=== PATIENT | female | born 1955 | race Caucasian/White ===

== ENCOUNTER 2017-04-05 16:34 | Inpatient (IN) | payer BC ==
[~2017-04-05] VITALS: Ht 167.6 cm; Wt 60.4 kg
[2017-04-05 18:22] LABS: BASO % 0.6 % (0.0-1.0); EOS # 0.2 K/mm3 (0.0-0.50); EOS % 2.3 % (0.0-3.0); LARGE UNSTAINED CELL # 0.1 K/mm3 (0.0-0.4); LARGE UNSTAINED CELL % 1.6 % (0.0-4.0); LYMPH # 2.4 K/mm3 (1.5-4.5); LYMPH % 32.3 % (24.0-44.0); MEAN CORPUSCULAR HEMOGLOBIN 37.6 pg (27.0-33.0); MEAN CORPUSCULAR HGB CONC 34.1 g/dl (32.0-36.5); MEAN CORPUSCULAR VOLUME 110.3 fl (80.0-96.0); MONO # 0.3 K/mm3 (0.0-0.8); MONO % 3.9 % (0.0-5.0); NEUTROPHILS # 4.2 K/mm3 (1.8-7.7); NEUTROPHILS % 59.2 % (36.0-66.0); PLATELET COUNT, AUTOMATED 210 k/mm3 (150-450); RED CELL DISTRIBUTION WIDTH 14.6 % (11.5-14.5); WHITE BLOOD COUNT 7.1 K/mm3 (4.0-10.0)
--- NOTE | 2017-04-05 18:30 | REPUSA ---
CT of the head Clinical history: Headache. Comparison: 09/03/2010. Technique: Multiple axial CT images were obtained through the head without administration of contrast . Findings: The ventricles and sulci are symmetric bilaterally. The arachnoid cyst in the right cerebel lum is stable. There is no evidence of acute hemorrhage or infarct. There is no midline shift, mass e ffect, or extra-axial fluid collection. The osseous structures are unremarkable. The visualized paran erika sinuses and mastoid air cells are clear. Impression: Negative study.
[2017-04-05 18:40] LABS: ANION GAP 7 MEQ/L (8-16); BLOOD UREA NITROGEN 15 MG/DL (7-18); CALCIUM LEVEL 8.9 MG/DL (8.8-10.2); CARBON DIOXIDE LEVEL 30 MEQ/L (21-32); CHLORIDE LEVEL 102 MEQ/L (98-107); CREATININE FOR GFR 0.91 MG/DL (0.55-1.02); GLOMERULAR FILTRATION RATE > 60.0 (>45); GLUCOSE, FASTING 91 MG/DL (80-110); POTASSIUM SERUM 3.7 MEQ/L (3.5-5.1); SODIUM LEVEL 139 MEQ/L (136-145)
--- NOTE | 2017-04-05 19:16 | REP ---
SINGLE VIEW CHEST: There is no evidence of acute infiltrate. No pleural effusion is seen. The heart is normal in size. The mediastinal silhouette is unremarkable. The visualized osseous structures are intact. IMPRESSION: No acute pulmonary disease. Signed by Mason Shultz MD 04/05/2017 08:20 P
[2017-04-05 19:17] LABS: INR 0.88
--- NOTE | 2017-04-05 20:10 | REPUSA ---
MRA of the brain. Clinical history: headache. Technique: [id number] MRA images of the brain were obtained without administration of contrast. 3 -D MIP images were also obtained. Findings: The vascular structures extending from the distal carotid and vertebrobasilar arterial syst ems, through the [place], demonstrate normal caliber and contour. There is no evidence of an eurysm, stenosis, or thrombosis. Impression: Unremarkable MRA examination of the brain.
--- NOTE | 2017-04-05 20:10 | REPUSA ---
MRI of the brain. Clinical history: headache. Comparison: 04/05/2017. Technique: Multiecho multiplanar MRI images of the brain were obtained without administration of cont rast. Diffusion weighted images with ADC mapping was also obtained. Findings: The ventricles and sulci are symmetric bilaterally. The brain parenchyma demonstrates mild areas of T 2 hyperintensity in the subcortical white matter bilaterally as well as the periventricular regions. There is a small linear area of restricted diffusion in the left basal ganglia, which does not demons trate any corresponding edema or mass effect on other images. There is no midline shift, mass effect, or extra-axial fluid collection. The midline intracranial structures do not demonstrate any gross ab normalities. The cervical cranial junction is intact. The orbits are unremarkable. The visualized par anasal sinuses and mastoid air cells are clear. The osseous structures and superficial soft tissues a re unremarkable. The vascular structures demonstrate appropriate flow voids. Impression: 1. Small linear area restricted diffusion in the left basal ganglia, which could represent a tiny acu te infarct. No corresponding imaging abnormality demonstrated on the CT or other MRI images. No evide nce of edema or mass effect. Follow-up is recommended as clinically indicated. 2. Other scattered areas of T2 hyperintensity is seen in the periventricular and subcortical white ma tter. Although this likely represents mild chronic small vessel ischemic disease, in a patient of thi s age a demyelinating process cannot completely be excluded. Clinical correlation is recommended. A call has been placed to the facility by our notch machine operator.
[2017-04-05] MEDS ORDERED: ONDANSETRON 4MG/2ML VIAL (J2405) IV PRN (20:30)
[2017-04-05] MEDS ORDERED: ACETAMINOPHEN TAB 650MG DOSE (2X325MG) PO PRN (20:30)
[2017-04-05] MEDS ORDERED: ASPIRIN 81 MG ENTERIC TAB PO ONE (21:00)
[2017-04-05] MEDS ORDERED: LABETALOL HCL 100 MG/20 ML VIAL IV ONE (21:30)
[2017-04-05 21:46] LABS: ANISOCYTOSIS 1+
[2017-04-05] MEDS ORDERED: ASPIRIN 325 MG TAB PO ONE (22:00)
--- NOTE | 2017-04-05 22:00 | REPUSA ---
Clinicaly History: Atherosclerosis. Findings: Real-Time carotid duplex ultrasound with color Doppler flow was performed. Normal color Dop pler flow and arterial waveforms are noted. Mild atherosclerotic plaque is seen in the region of the carotid bulbs bilaterally. No elevated velocities are seen however. Antegrade blood flow is seen in t he vertebral arteries bilaterally. There is no evidence of subclavian steal. The right ICA/CCA ratio measures 0.55, and the left measures 1.35. Impression: No evidence of hemodynamically significant stenosis in the carotid arterial system bilate rally. Mild atherosclerotic plaque is seen in the region of the carotid bulbs bilaterally.
[2017-04-05 22:26] LABS: ERYTHROCYTE SEDIMENTATION RATE 7 mm/hr (0-30)
--- NOTE | 2017-04-05 22:30 | HPE ---
DATE OF ADMISSION: 04/05/2017 PRIMARY CARE PHYSICIAN: Bonnie Cazares. CHIEF COMPLAINT: extremity weakness, as well as vertigo and blurry vision. HISTORY OF PRESENT ILLNESS: Ms. Stewart is a 62-year-old female with no past medical history who presented to the emergency room (ER) due to experiencing vertigo, lower extremity weakness and heaviness, as well as one episode of fall. The patient expressed that the symptoms started around 11:30 a.m. when she was walking toward her office when she felt that she cannot control her lower extremity and her lower extremity felt heavy. She fell and she injured her right knee. She said at that time she crawled herself to the bench. She sat down on the bench and called her cap and hat production supervisor. Her cap and hat production supervisor came and talked to her. She said at that time, she stood up and she walked toward the break room. In the break room. She sat down for a few minutes and then she stood up and she felt vertigo and lower extremity heaviness. She also felt that her vision became more blurry. She went home and after she got home she took a nap. When she woke up, she continued to feel lower extremity heaviness and weakness. She crawled herself to the phone and she called the emergency medical investigator (EMT). The patient denies losing consciousness or feeling chest pain, palpitations, racing or skipping heart beat before the episode. However, she said after the episode, she felt mild tachycardia. The patient continued to have vertigo and blurry vision. The patient denies losing control of her bowel or bladder. The patient also denies seizure type activities or syncope. ALLERGIES: No known allergies. HOME MEDICATIONS: None. PAST MEDICAL HISTORY: 1. Basal cell carcinoma of the skin that was removed. 2. Micro colitis. PAST SURGICAL HISTORY: Colonoscopy two times, and removal of the basal cell cancer of the skin on her nose. REVIEW OF SYSTEMS: GENERAL: The patient denies fever, chills, night sweats, weight loss, weight gain. HEENT: The patient expressed that she has been having vertigo and lightheadedness, and blurry vision since this morning. However, the patient denies problem with chewing food or sinusitis. NECK: The patient denies lumps, bumps or decreased range of motion of the neck. HEART: The patient denies palpitations, racing or skipping heart beat or chest pain. LUNGS: The patient denies shortness of breath, coughing. ABDOMEN: The patient denies abdominal pain, nausea, vomiting, diarrhea, constipation, melena, hematochezia or hemoptysis. NEUROLOGIC: The patient denies history of transient ischemic attack (TIA), cerebrovascular accident (CVA) or seizure type activity. PHYSICAL EXAMINATION: VITAL SIGNS: Temperature 98.1, pulse 76, respiratory rate 16, blood pressure 186/87, pulse oximetry 98 on room air. GENERAL APPEARANCE: The patient was lying in bed in no acute distress. The patient was awake, alert, and oriented to time, place, and person. HEENT: Normocephalic, atraumatic. Pupils are equal and reactive to light. Oral mucosa is moist. NECK: Soft, supple. No lymphadenopathy or thyromegaly. No jugular venous distention (JVD). HEART: Regular rate and rhythm, normal S1, S2. ABDOMEN: Soft, nontender. Positive bowel sounds in all quadrants. LUNGS: The patient has clear breath sounds bilaterally. Good air movement. EXTREMITIES: No lower extremity edema. The patient has normal range of motion in both upper and lower extremities. Babinski sign was negative bilaterally. The patient has normal ankle and popliteal reflexes, +2 pulses in both lower extremities. The patient has normal sensation in both upper and lower extremities, as well as normal strength 5/5 both upper and lower extremities. NEUROLOGIC: The patient has mild disorder [id number] finding. Cranial nerves II through XII were intact. LABORATORY DATA: Sodium 139. Potassium 3.7, chloride 102, carbon dioxide 30, anion gap seven, BUN 15, creatinine 0.91, glomerular filtration rate more than 60, fasting glucose 91 , calcium 8.9. Total creatinine 87, CK-MB 1.2, CK-MB relative index 1.37, troponin I 0.05. C-reactive protein is pending. White blood cells 7.1, red blood cells 3.33, hemoglobin 12.5, hematocrit 36.7, MCV 110.3, MCH 37.6, MCHC 34.1, RDW 14.6, platelet count 210. Neutrophil percentage 59.2, lymphocyte percentage 32, monocytes percentage 3.9, eosinophils percentage 2.3, basophils percentage 0.6, leukocyte percentage 1.6. PT 12, INR 0.88, APTT 30.1. IMAGING: CT of the head was negative. Chest x-ray shows no acute pulmonary disease. MRI of the brain without contrast shows a small linear area restricted defusion in the left basal ganglia which could represent a tiny acute infarct. No corresponding imaging abnormality demonstrated on the CT or other MRI imaging. No edema of edema or mass effect. Other scattered areas of the T2 hyperintensity is seen in the preventricular and the subcortical white matter, although this likely represents mild chronic small-vessel ischemic disease. In a patient of this age, demyelinated process cannot complete be excluded. MRA of the brain without contrast was unremarkable. ASSESSMENT AND PLAN: 1. Extremity weakness as well as vertigo and blurry vision. This is possibly secondary to stroke. We have spoken with Dr. Campbell. Appreciate Dr. Campbell's recommendation. At this time, we gave one dose of aspirin 325. Also we start the patient on aspirin 81 mg and Lipitor 40 mg. We have admitted the patient to the progressive care unit (PCU) with neurologic checks every four hours. Also, due to patient having hypertension, based on recommendation from Dr. Campbell, we will monitor the blood pressure for range of 140-180. Also he recommended revaluation of imaging interpretation. Due to the elevated blood pressure, we have administered one dose of labetalol 10 mg intravenous (IV) and lisinopril 5 mg by mouth twice a day. Also, we have checked an electrocardiogram (EKG) which indicated possible incomplete right bundle branch block. Cardiac marker was negative. We will repeat the cardiac marker again. Also, due to the possibility of hypercoagulable state, I have ordered lab work and the result is pending. Also, we have ordered thyroid panel and the result is pending at this time. Also we have ordered echocardiogram and carotid ultrasound, and the result is pending. 2. Hypertension. At this time, the patient received one dose of labetalol 10 mg IV once, and will continue with lisinopril 5 mg by mouth twice a day. However, we put the primary care and we want the blood pressure to be between 140 to 180. 3. Deep venous thrombosis (DVT) prophylaxis. The patient is on heparin. My preceptor for this patient encounter was Dr. Lin Vu. The preceptor was physically present in the building during the encounter and was fully available as needed. All aspects of the patient interview, examination, medical decision making process, and medical care plan development were reviewed and approved by the preceptor. The preceptor is aware and concurs with the plan as stated in the body of this note and will attest to such by his/her co-signature. I have both independently examined this patient as well as reviewed the H&P. I have discussed in detail with the resident the findings and plan of treatment as documented in the residents note. I will continue to follow the patient and offer further guidance to the patients care as necessary during this hospital stay. Lin VERONICA
[2017-04-05] MEDS: ATORVASTATIN 20 MG TAB PO SCH (22:43)
[2017-04-05] MEDS: HEPARIN SOD (PORCINE) 5000 UNITS/ML VIAL SQ SCH (22:44)
[2017-04-05] MEDS: LISINOPRIL 5 MG TAB PO SCH (22:44)
[2017-04-05 23:42] VITALS: BP 177/81
[2017-04-06] VITALS (8 sets, daily range): BP systolic 138–174; BP diastolic 62–82
[2017-04-06 00:28] LABS: T UPTAKE 37 % (30-39); THYROXINE (T4) 8.3 UG/DL (4.5-12.0)
[2017-04-06 05:55] LABS: BASO % 0.6 % (0.0-1.0); EOS # 0.2 K/mm3 (0.0-0.50); EOS % 3.4 % (0.0-3.0); LARGE UNSTAINED CELL # 0.1 K/mm3 (0.0-0.4); LARGE UNSTAINED CELL % 1.4 % (0.0-4.0); LYMPH # 2.5 K/mm3 (1.5-4.5); LYMPH % 39.7 % (24.0-44.0); MEAN CORPUSCULAR HEMOGLOBIN 38.5 pg (27.0-33.0); MONO # 0.2 K/mm3 (0.0-0.8); MONO % 3.1 % (0.0-5.0); NEUTROPHILS # 3.2 K/mm3 (1.8-7.7); NEUTROPHILS % 51.8 % (36.0-66.0); PLATELET COUNT, AUTOMATED 192 k/mm3 (150-450); RED CELL DISTRIBUTION WIDTH 14.4 % (11.5-14.5); WHITE BLOOD COUNT 6.1 K/mm3 (4.0-10.0)
[2017-04-06 05:59] LABS: ADD MORPHOLOGY? YES
[2017-04-06 06:04] LABS: ALBUMIN 3.2 GM/DL (3.2-5.2); ALBUMIN/GLOBULIN RATIO 1.39 (1.00-1.93); ALKALINE PHOSPHATASE 77 U/L (45-117); ALT/SGPT 16 U/L (12-78); ANION GAP 5 MEQ/L (8-16); AST/SGOT 13 U/L (15-37); BILIRUBIN,TOTAL 0.6 MG/DL (0.2-1.0); BLOOD UREA NITROGEN 12 MG/DL (7-18); CALCIUM LEVEL 8.4 MG/DL (8.8-10.2); CARBON DIOXIDE LEVEL 28 MEQ/L (21-32); CHLORIDE LEVEL 102 MEQ/L (98-107); CREATININE FOR GFR 0.71 MG/DL (0.55-1.02); GLOMERULAR FILTRATION RATE > 60.0 (>45); GLUCOSE, FASTING 98 MG/DL (80-110); MAGNESIUM LEVEL 1.9 MG/DL (1.8-2.4); POTASSIUM SERUM 3.3 MEQ/L (3.5-5.1); SODIUM LEVEL 135 MEQ/L (136-145); T UPTAKE 39 % (30-39); THYROXINE (T4) 7.3 UG/DL (4.5-12.0); TOTAL PROTEIN 5.5 GM/DL (6.4-8.2)
[2017-04-06] MEDS: POTASSIUM CHLORIDE 10 MEQ SR TABLET PO SCH ×2 (06:36→08:34)
[2017-04-06] MEDS ORDERED: POTASSIUM CHLORIDE 10 MEQ SR TABLET PO ONE (07:00)
[2017-04-06] MEDS: ASPIRIN 81 MG ENTERIC TAB PO SCH (08:34)
[2017-04-06] MEDS: HEPARIN SOD (PORCINE) 5000 UNITS/ML VIAL SQ SCH ×2 (08:35→21:38)
[2017-04-06] MEDS: LISINOPRIL 5 MG TAB PO SCH ×2 (08:57→21:30)
[2017-04-06 12:13] LABS: CHOLESTEROL LEVEL 144 MG/DL (<200); TRIGLYCERIDES LEVEL 103 MG/DL (<150)
--- NOTE | 2017-04-06 18:26 | IPN ---
DATE: 04/06/2017 SUBJECTIVE: The patient is seen and examined in the room today. The patient still complaining about the extremity weakness. The patient still complains about frequent fall. Now the patient states her gait has become very unsteady. No overnight events reported. OBJECTIVE: VITAL SIGNS: The temperature is 99.1, pulse is 67, respirations 18, blood pressure 167/79. Pulse oximetry is 99% on room air. GENERAL: Agitated, no acute distress. Alert and oriented times three. HEENT: Normocephalic, atraumatic. Extraocular motor grossly intact. CARDIOVASCULAR: Positive S1, S2. Regular rate. LUNGS: Clear to auscultation bilaterally. ABDOMEN: Soft, nontender, nondistended. Bowel sounds present. EXTREMITIES: No edema. No sign of cyanosis. NEUROLOGIC: Sensation to fine touch grossly intact. Muscle strength intact. LABORATORY DATA: WBC 6.1, hemoglobin 11.6, hematocrit 33, platelet count 192. Sodium is 135, potassium 3.3, chloride 102, carbon dioxide 28, BUN 12, creatinine 0.71, GFR greater than 60, fasting glucose 98, calcium 8.4, magnesium 1.9, total bilirubin 0.6, AST 13, ALT 16, alkaline phosphatase 77. Total CK is 74. Troponin I is 0.06. Total protein 5.5, albumin 3.2, triglycerides 103, total cholesterol 144, LDL 55.4, total HDL 68. TSH is 1.61. Free T4 index is 2.8. ASSESSMENT AND PLAN: 1. Neurological deficit. The patient has lower extremity weakness with resulting frequent falls. Neurologist Dr. Campbell being consulted. However, there is a suspicion there may be a lesion on the right side of brain which was not dictated in the official report. We may need a second opinion from Dr. Louie. At this moment, we will treat is as the patient has a stroke. The patient is on aspirin 81 mg and Lipitor 40 mg. The patient is monitored on telemetry with neurologic checks. The patient is on permissive hypertension. 2. History of hypertension. Current the patient is on lisinopril with holding parameter. The patient needs to be around 140/180s. 3. Deep venous thrombosis (DVT) prophylaxis. The patient is on heparin. [facility]
--- NOTE | 2017-04-06 20:01 | ECGEPIP ---
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
[2017-04-06] MEDS: ATORVASTATIN 20 MG TAB PO SCH (21:38)
[2017-04-07 05:00] VITALS: BP 145/77
[2017-04-07 06:06] LABS: BASO % 0.7 % (0.0-1.0); EOS # 0.1 K/mm3 (0.0-0.50); EOS % 2.3 % (0.0-3.0); LARGE UNSTAINED CELL # 0.1 K/mm3 (0.0-0.4); LARGE UNSTAINED CELL % 1.7 % (0.0-4.0); LYMPH # 2.7 K/mm3 (1.5-4.5); LYMPH % 43.1 % (24.0-44.0); MEAN CORPUSCULAR VOLUME 111.8 fl (80.0-96.0); MONO # 0.2 K/mm3 (0.0-0.8); MONO % 3.9 % (0.0-5.0); NEUTROPHILS # 2.9 K/mm3 (1.8-7.7); NEUTROPHILS % 48.3 % (36.0-66.0); PLATELET COUNT, AUTOMATED 219 k/mm3 (150-450); RED CELL DISTRIBUTION WIDTH 14.6 % (11.5-14.5)
[2017-04-07 06:28] LABS: ALKALINE PHOSPHATASE 83 U/L (45-117); ALT/SGPT 20 U/L (12-78); ANION GAP 7 MEQ/L (8-16); AST/SGOT 19 U/L (15-37); BLOOD UREA NITROGEN 12 MG/DL (7-18); CALCIUM LEVEL 9.2 MG/DL (8.8-10.2); CARBON DIOXIDE LEVEL 27 MEQ/L (21-32); CHLORIDE LEVEL 104 MEQ/L (98-107); CREATININE FOR GFR 0.72 MG/DL (0.55-1.02); GLOMERULAR FILTRATION RATE > 60.0 (>45); GLUCOSE, FASTING 93 MG/DL (80-110); POTASSIUM SERUM 3.6 MEQ/L (3.5-5.1); SODIUM LEVEL 138 MEQ/L (136-145)
[2017-04-07 06:29] LABS: ALBUMIN 3.6 GM/DL (3.2-5.2); ALBUMIN/GLOBULIN RATIO 1.29 (1.00-1.93); BILIRUBIN,TOTAL 0.5 MG/DL (0.2-1.0); MAGNESIUM LEVEL 2.1 MG/DL (1.8-2.4); TOTAL PROTEIN 6.4 GM/DL (6.4-8.2)
[2017-04-07 08:00] VITALS: BP 141/72
[2017-04-07] MEDS: LISINOPRIL 5 MG TAB PO SCH ×2 (08:38→21:11)
[2017-04-07] MEDS: HEPARIN SOD (PORCINE) 5000 UNITS/ML VIAL SQ SCH ×2 (08:38→21:07)
[2017-04-07] MEDS: ASPIRIN 81 MG ENTERIC TAB PO SCH (08:38)
--- NOTE | 2017-04-07 10:25 | ECHO ---
DATE OF PROCEDURE: 04/06/2017 DATE OF : 1955 AGE: 62 REFERRING PROVIDER: Emergency room. PATIENT LOCATION: Emergency room. REASON FOR ECHOCARDIOGRAM: Weakness, cerebrovascular accident (CVA). 2D MEASUREMENTS: IVS: 1.1 cm LV: 4.4 cm LVPW: 1.2 cm LA: 3.0 cm Aorta: 3.8 cm Aortic root: 3.8 cm Ascending aorta: 3.9 cm RV: 2.1 cm DOPPLER MEASUREMENTS: Mitral E: 0.56 Mitral A: 0.80 Ratio 0.7 2D COMMENTS: 1. Technically limited study due to poor acoustic window. 2. The left ventricular size is normal as well as left ventricular wall thickness and systolic function. The estimated global left ventricular systolic ejection fraction is 60% to 65%. 3. Normal left atrium. Normal right atrium and right ventricle noted in limited views. 4. The atrial septum appeared to be normal without evidence of defect or shunt. 5. Mildly enlarged aortic root and ascending aorta at 3.8 cm and 3.9 cm respectively. 6. Trace pericardial effusion noted in limited views. 7. The aortic valve, mitral valve, and tricuspid valve appeared to be normal. The pulmonic valve and proximal pulmonary artery branches were not well visualized. 8. The inferior vena cava was normal in size, central venous pressure is probably normal. DOPPLER: No significant valvular abnormality detected. Abnormal relaxation pattern was noted across the mitral valve leaflets as well as the mitral valve annulus consistent with grade 1 left ventricular diastolic dysfunction. IMPRESSION: 1. Normal global left ventricular systolic function. There are features of left ventricular diastolic dysfunction manifested by abnormal relaxation. 2. Mildly dilated aortic root and ascending aorta at 3.8 cm and 3.9 cm respectively. 3. Trace pericardial effusion noted, no evidence of cardiac tamponade. 4. The study was technically limited due to poor acoustic window. [facility]
[2017-04-07] MEDS ORDERED: SLF 3 ML SYR IV PRN (10:30)
[2017-04-07 12:00] VITALS: BP 149/71
[2017-04-07] MEDS: SLF 3 ML SYR IV SCH ×2 (12:05→21:07)
--- NOTE | 2017-04-07 12:56 | CR ---
DATE OF CONSULTATION: 04/07/2017 REFERRING PROVIDER: Dr. Carole Mendez REASON FOR CONSULTATION: Acute stroke. HISTORY OF PRESENT ILLNESS: Vangie Stewart is a 62-year-old female with past medical history significant for history of basal cell carcinoma of her nose status post removal. The patient presented to [facility] with complaints of having weakness of the lower extremities over the last couple of days. She states that she reports clumsiness of her right side which she cannot exactly date back to. She states she has always been clumsy. She was found to have significant ataxia of the right arm and right leg. MRI of the brain reveals acute ischemic stroke of the left basal ganglia region near the left thalamus as well as a prior old right cerebellar infarct with some significant encephalomalacia. Official read for this particular lesion is pending as the MRI report did not comment on it. Second read by Dr. Esteban Louie is pending. The patient states that she saw her doctor only when she gets sick, otherwise was not going to her physician for the last several years. The patient states that she has been having blurred vision on and off, particularly when reading close up. She states this affects both eyes, she has not seen her eye doctor recently. She does not have difficulty seeing far away. She denies any chest pain or dizziness. She denies any dizziness or vertigo. She states that over the last few days she has had some lightheadedness. She has been hypertensive while in the hospital. The patient states that she has been having difficulty ambulating , which is likely resulting from right-sided hemiparesis from her most recent stroke and also from her ataxia likely from a prior stroke. Her strokes are lacunar in nature, likely secondary to uncontrolled hypertension. The patient does smoke. She does not take an aspirin every day. She was started on 81 mg aspirin after receiving 325 mg aspirin at the emergency room (ER). The patient states that her cholesterol levels were good; however, she is agreeable to go ahead and continue statin therapy for the sake of controlling plaque within her arterial rose. REVIEW OF SYSTEMS: 14-point review of systems obtained and is negative except as per history of present illness (HPI). ALLERGIES: None. HOME MEDICATIONS: None. SOCIAL HISTORY: The patient smokes one-pack of tobacco per day and has one to two glasses of wine per day. Denies any recreational drug use. FAMILY HISTORY: Mother had hypertension. No family history of stroke or heart disease. MEDICAL HISTORY: Basal carcinoma of the nose status post resection. PAST SURGICAL HISTORY: Resection of basal cell carcinoma of the nose. PHYSICAL EXAMINATION: Blood pressure 156/68, pulse rate is 70, respiratory rate is 18, temperature is 98.4 degrees Fahrenheit and oxygenation 94% on room air. The patient is awake, alert, oriented to person, place and time. Speech, language and comprehension are intact without any aphasia or dysarthria. Pupils are 3 mm round and reactive to light. Extraocular movements are intact in all directions without any nystagmus. Sensation V1, V2 and V3 is intact to light touch bilaterally. No facial asymmetry on activation. Palate elevates symmetrically. Tongue is midline. No weakness of sternocleidomastoids bilaterally. Hearing is subjectively equal to finger rub. There is very subtle pronator drift of the right upper extremity. Strength testing reveals mild weakness of the right triceps and iliopsoas and 5- weakness of the right biceps. All other muscles tested are within normal limits. Deep tendon reflexes are 2s throughout. Babinski signs are absent. Sensory is intact to light touch, temperature and vibration throughout. Coordination reveals gross ataxia of the right upper and lower extremity on [id number] and [id number] testing. ASSESSMENT: Acute ischemic stroke of the left basal ganglia region in proximity of the thalamus along with old chronic right cerebellar lacunar infarction with encephalomalacia. Other etiologies for this lesion will need to be reviewed by radiology. Second opinion read of the MRI brain is pending. PLAN: 1. Systolic blood pressure 140-180 times 48-72 hours then normalize it. Continue aspirin 81 mg by mouth daily and Lipitor 40 mg by mouth daily. 2. Check fasting lipid profile. 3. Second opinion MRI read to be performed. 4. Continue telemetry monitoring. Obtain echocardiogram. 5. Physical therapy (PT), occupational therapy (OT). 6. Patient advised smoking cessation. 7. Patient can followup with the [facility] Neurology office upon discharge. [facility]
[2017-04-07 16:00] VITALS: BP 120/58
[2017-04-07 20:11] VITALS: BP 134/63
[2017-04-07] MEDS: ATORVASTATIN 20 MG TAB PO SCH (21:06)
--- NOTE | 2017-04-07 21:37 | IPN ---
DATE: 04/07/2017 SUBJECTIVE: The patient is seen and examined in the room today. The patient feels she is more calm. Yesterday the patient was frustrated with the situation and the patient has been angry easily yesterday, but now she feels much better. The patient is still complaining about the right arm and right lower leg weakness. No overnight events reported. OBJECTIVE: VITAL SIGNS: Temperature 98.3, pulse is 62, respirations 18, blood pressure 141/72, pulse oximetry is 99% on room air. GENERAL: No sign of acute distress. Alert and oriented times three. HEENT: Normocephalic, atraumatic. Extraocular motor grossly intact. CARDIOVASCULAR: Positive S1, S2, regular rate. LUNGS: Clear to auscultation bilaterally. ABDOMEN: Soft, nontender, nondistended. Bowel sounds present. No rebound, no guarding. EXTREMITIES: No edema, no sign of cyanosis. LABORATORY DATA: WBC 6, hemoglobin 12.8, hematocrit 37.6, platelet count is 219. Sodium is 138, potassium 3.6, chloride 104, carbon dioxide 27, BUN 12, creatinine 0.72, GFR greater than 60, fasting glucose is 93, calcium 9.2, magnesium 2.1. Total bilirubin 0.5, AST 19, ALT 20, alkaline phosphatase 83. Total protein 6.4, albumin 3.6. ASSESSMENT AND PLAN: 1. Right-sided weakness. There is a suspicion for stroke. Dr. Campbell has been consulted, who recommends second opinion for patient's previous brain MRI. At this moment, the patient started on aspirin 81 mg and Lipitor 40 mg. The patient is continued to be monitored on telemetry with neurologic checks. We will allow permissive hypertension. 2. History of hypertension. Currently the patient's blood pressure medication is on hold in order to reach a goal of high blood pressure (systolic blood pressure (SBP) around 140s-180s). 3. Deep venous thrombosis (DVT) prophylaxis. The patient is on heparin.
[2017-04-08 00:17] VITALS: BP 144/66
[2017-04-08 04:14] VITALS: BP 140/70
[2017-04-08] MEDS: SLF 3 ML SYR IV SCH ×3 (04:26→21:05)
[2017-04-08 06:12] LABS: BASO % 0.4 % (0.0-1.0); EOS # 0.2 K/mm3 (0.0-0.50); EOS % 2.2 % (0.0-3.0); LARGE UNSTAINED CELL # 0.1 K/mm3 (0.0-0.4); LARGE UNSTAINED CELL % 1.3 % (0.0-4.0); LYMPH # 2.3 K/mm3 (1.5-4.5); LYMPH % 31.1 % (24.0-44.0); MEAN CORPUSCULAR HEMOGLOBIN 38.7 pg (27.0-33.0); MEAN CORPUSCULAR HGB CONC 34.5 g/dl (32.0-36.5); MEAN CORPUSCULAR VOLUME 112.1 fl (80.0-96.0); MONO # 0.3 K/mm3 (0.0-0.8); MONO % 3.7 % (0.0-5.0); NEUTROPHILS # 4.3 K/mm3 (1.8-7.7); NEUTROPHILS % 61.3 % (36.0-66.0); PLATELET COUNT, AUTOMATED 197 k/mm3 (150-450); RED CELL DISTRIBUTION WIDTH 14.8 % (11.5-14.5)
[2017-04-08 06:13] LABS: ADD MORPHOLOGY? YES
[2017-04-08 06:26] LABS: ALBUMIN 3.2 GM/DL (3.2-5.2); ALBUMIN/GLOBULIN RATIO 1.28 (1.00-1.93); ALKALINE PHOSPHATASE 70 U/L (45-117); ALT/SGPT 21 U/L (12-78); ANION GAP 6 MEQ/L (8-16); AST/SGOT 15 U/L (15-37); BILIRUBIN,TOTAL 0.4 MG/DL (0.2-1.0); BLOOD UREA NITROGEN 14 MG/DL (7-18); CALCIUM LEVEL 8.5 MG/DL (8.8-10.2); CARBON DIOXIDE LEVEL 28 MEQ/L (21-32); CHLORIDE LEVEL 106 MEQ/L (98-107); CREATININE FOR GFR 0.66 MG/DL (0.55-1.02); GLOMERULAR FILTRATION RATE > 60.0 (>45); GLUCOSE, FASTING 86 MG/DL (80-110); MAGNESIUM LEVEL 1.8 MG/DL (1.8-2.4); POTASSIUM SERUM 3.5 MEQ/L (3.5-5.1); SODIUM LEVEL 140 MEQ/L (136-145); TOTAL PROTEIN 5.7 GM/DL (6.4-8.2)
[2017-04-08 08:01] VITALS: BP 132/66
[2017-04-08] MEDS: ASPIRIN 81 MG ENTERIC TAB PO SCH (08:09)
[2017-04-08] MEDS: HEPARIN SOD (PORCINE) 5000 UNITS/ML VIAL SQ SCH ×2 (08:09→21:04)
[2017-04-08] MEDS: LISINOPRIL 5 MG TAB PO SCH ×2 (08:10→20:58)
[2017-04-08 16:00] VITALS: BP 148/70
--- NOTE | 2017-04-08 18:57 | IPN ---
DATE: 04/08/2017 SUBJECTIVE: Patient is seen and examined in the room today. Patient continues to complain about the right arm and leg weakness, however patient stated she is learning how to cope with the new deficit. No overnight events are reported. OBJECTIVE: VITAL SIGNS: Temperature is 97.6, pulse is 64, respirations 19, blood pressure 132/66, pulse oximetry is 97% in room air. GENERAL: No sign of acute distress. Alert and oriented times three. HEENT: Normocephalic, atraumatic. Extraocular motors grossly intact. CARDIOVASCULAR: Positive S1, S2, regular rate. LUNGS: Clear to auscultation bilaterally. ABDOMEN: Soft, nontender, nondistended. Bowel sounds present. No rebound, no guarding. EXTREMITIES: No edema, no sign of cyanosis. LABORATORY DATA: WBC 7, hemoglobin 11.8, hematocrit 34.2, platelet count is 197. Sodium is 140, potassium 3.5, chloride 106, carbon dioxide 28, BUN 14, creatinine 0.66, GFR is greater than 60, fasting glucose is 86, calcium 8.5, magnesium 1.8, total bilirubin 0.4, AST 15, ALT 21, alkaline phosphatase 70, total protein 5.7, albumin 3.2. ASSESSMENT AND PLAN: 1. Right-sided weakness. There is a question with regard to the MRI performed on 04/05/2017. Patient's signs and clinical picture presented with acute infarction. Neurologist has been consulted. I went to review the MRI of the brain again with neurologist and there was found to have a new small focal acute infarction at the lateral margin of the left thalamus. Patient was started on aspirin 81 mg and Lipitor. Patient has been monitored on telemetry for 3 days and no significant abnormality was detected and patient also continued on neurologic checks. Patient has been on the blood pressure with holding parameters for permissive hypertension. Unfortunately, this morning her blood pressure was given when patient's blood pressure is not in the target goal. Patient had a blood pressure lower than the range recommended for permissive hypertension. 2. Left thalamus acute infarction. Management as listed above. Patient continues to follow with physical therapy. Patient will be moved to medical/surgical floor. Per patient, patient usually lives by herself. Since patient started having right-sided mobility deficit, it may create some difficulty for her to maintain activities of daily living. Patient will continue working with physical therapy and patient may qualify for rehabilitation. However, placement may be an issue at the time of discharge. 3. History of hypertension. Previously, patient is on blood pressure medication with holding parameters for permissive hypertension for patient's acute stroke. Patient is currently on lisinopril. 4. Deep venous thrombosis (DVT) prophylaxis. The patient is on heparin.
[2017-04-08] MEDS: ATORVASTATIN 20 MG TAB PO SCH (21:04)
[2017-04-08 22:00] VITALS: BP 137/64
[2017-04-09] MEDS: SLF 3 ML SYR IV SCH ×3 (05:34→21:45)
[2017-04-09 06:00] VITALS: BP 138/65
[2017-04-09 06:12] LABS: BASO % 0.6 % (0.0-1.0); EOS # 0.2 K/mm3 (0.0-0.50); LARGE UNSTAINED CELL # 0.1 K/mm3 (0.0-0.4); LARGE UNSTAINED CELL % 1.4 % (0.0-4.0); LYMPH # 2.5 K/mm3 (1.5-4.5); LYMPH % 37.7 % (24.0-44.0); MEAN CORPUSCULAR HGB CONC 34.5 g/dl (32.0-36.5); MONO # 0.3 K/mm3 (0.0-0.8); MONO % 4.6 % (0.0-5.0); NEUTROPHILS # 3.4 K/mm3 (1.8-7.7); NEUTROPHILS % 52.7 % (36.0-66.0); PLATELET COUNT, AUTOMATED 215 k/mm3 (150-450); RED CELL DISTRIBUTION WIDTH 14.9 % (11.5-14.5); WHITE BLOOD COUNT 6.5 K/mm3 (4.0-10.0)
[2017-04-09 06:16] LABS: ADD MORPHOLOGY? YES
[2017-04-09 06:46] LABS: ANISOCYTOSIS 1+
[2017-04-09 07:15] LABS: ALBUMIN 3.2 GM/DL (3.2-5.2); ALBUMIN/GLOBULIN RATIO 1.28 (1.00-1.93); ALKALINE PHOSPHATASE 70 U/L (45-117); ALT/SGPT 24 U/L (12-78); ANION GAP 6 MEQ/L (8-16); AST/SGOT 25 U/L (15-37); BILIRUBIN,TOTAL 0.3 MG/DL (0.2-1.0); BLOOD UREA NITROGEN 10 MG/DL (7-18); CALCIUM LEVEL 8.7 MG/DL (8.8-10.2); CARBON DIOXIDE LEVEL 27 MEQ/L (21-32); CHLORIDE LEVEL 103 MEQ/L (98-107); CREATININE FOR GFR 0.64 MG/DL (0.55-1.02); GLOMERULAR FILTRATION RATE > 60.0 (>45); GLUCOSE, FASTING 89 MG/DL (80-110); POTASSIUM SERUM 3.9 MEQ/L (3.5-5.1); SODIUM LEVEL 136 MEQ/L (136-145); TOTAL PROTEIN 5.7 GM/DL (6.4-8.2)
[2017-04-09] MEDS: LISINOPRIL 5 MG TAB PO SCH ×2 (08:57→20:03)
[2017-04-09] MEDS: ASPIRIN 81 MG ENTERIC TAB PO SCH (08:57)
[2017-04-09] MEDS: HEPARIN SOD (PORCINE) 5000 UNITS/ML VIAL SQ SCH ×2 (08:58→20:07)
[2017-04-09 14:00] VITALS: BP 141/66
[2017-04-09] MEDS: ATORVASTATIN 20 MG TAB PO SCH (20:07)
[2017-04-09 20:10] VITALS: BP 151/70
[2017-04-10 06:00] VITALS: BP 140/68
[2017-04-10] MEDS: SLF 3 ML SYR IV SCH (06:00)
[2017-04-10 06:16] LABS: BASO % 0.4 % (0.0-1.0); EOS # 0.2 K/mm3 (0.0-0.50); EOS % 2.7 % (0.0-3.0); LARGE UNSTAINED CELL # 0.1 K/mm3 (0.0-0.4); LARGE UNSTAINED CELL % 1.6 % (0.0-4.0); LYMPH # 2.1 K/mm3 (1.5-4.5); LYMPH % 31.2 % (24.0-44.0); MEAN CORPUSCULAR HEMOGLOBIN 38.6 pg (27.0-33.0); MEAN CORPUSCULAR HGB CONC 34.1 g/dl (32.0-36.5); MEAN CORPUSCULAR VOLUME 113.3 fl (80.0-96.0); MONO # 0.4 K/mm3 (0.0-0.8); MONO % 5.4 % (0.0-5.0); NEUTROPHILS # 3.8 K/mm3 (1.8-7.7); NEUTROPHILS % 58.7 % (36.0-66.0); PLATELET COUNT, AUTOMATED 218 k/mm3 (150-450); RED CELL DISTRIBUTION WIDTH 14.8 % (11.5-14.5); WHITE BLOOD COUNT 6.4 K/mm3 (4.0-10.0)
[2017-04-10 06:43] LABS: ALBUMIN/GLOBULIN RATIO 1.43 (1.00-1.93); ALKALINE PHOSPHATASE 70 U/L (45-117); ALT/SGPT 38 U/L (12-78); ANION GAP 5 MEQ/L (8-16); AST/SGOT 47 U/L (15-37); BILIRUBIN,TOTAL 0.4 MG/DL (0.2-1.0); BLOOD UREA NITROGEN 13 MG/DL (7-18); CALCIUM LEVEL 8.3 MG/DL (8.8-10.2); CARBON DIOXIDE LEVEL 28 MEQ/L (21-32); CHLORIDE LEVEL 103 MEQ/L (98-107); CREATININE FOR GFR 0.54 MG/DL (0.55-1.02); GLOMERULAR FILTRATION RATE > 60.0 (>45); GLUCOSE, FASTING 86 MG/DL (80-110); MAGNESIUM LEVEL 1.8 MG/DL (1.8-2.4); POTASSIUM SERUM 3.9 MEQ/L (3.5-5.1); SODIUM LEVEL 136 MEQ/L (136-145); TOTAL PROTEIN 5.1 GM/DL (6.4-8.2)
[2017-04-10] MEDS ORDERED: ATOR1TAB21 PO ×2 (07:27→11:32)
[2017-04-10] MEDS ORDERED: ASPI81TAEC PO ×2 (07:27→11:32)
[2017-04-10] MEDS ORDERED: LISI-542 PO ×2 (07:27→11:32)
[2017-04-10 09:00] VITALS: BP 143/66
[2017-04-10] MEDS: LISINOPRIL 5 MG TAB PO SCH (09:00)
[2017-04-10] MEDS: ASPIRIN 81 MG ENTERIC TAB PO SCH (09:42)
[2017-04-10] MEDS: HEPARIN SOD (PORCINE) 5000 UNITS/ML VIAL SQ SCH (09:42)
--- NOTE | 2017-04-10 09:44 | IPN ---
DATE OF SERVICE: 04/09/2017 Patient is seen and examined at the bedside. Chart has been reviewed. This morning patient continues to complain of inability of fine-tune writing. She continues to have right-sided weakness, unable to recognize her own handwriting due to severe weakness of the fingers. No other issues. Walking with a walker. Very concerned about missing work and applying for disability. Requesting for paperwork from social work. Temperature 97.6, pulse 64, respiratory rate 18, blood pressure 144/65, 98% on room air, and generally patient is awake, alert and oriented to person, place and time. No facial asymmetry. Speaks in full sentences. Patient has no dysarthria. Speech is fluent. Face is symmetric. Tongue is midline. No jugular venous distention or thyromegaly. Lungs are clear to auscultation. No wheezing , rales or rhonchi. Heart: S1, S2, sinus rhythm. Abdomen is soft, nontender, nondistended. Extremities: No cyanosis, clubbing or pitting edema. Motor function: Patient is awake, alert, oriented times three. Deep tendon reflexes (DTRs) are intact. No dysarthria. No facial asymmetry. Patient has no dysmetria on [id number] testing. Mild weakness of right triceps and right biceps. All other muscles are 5/5 times four extremities. Laboratory data, microbiology have been reviewed. CURRENT ISSUES: 1. Acute ischemic stroke, left basal ganglia, left thalamic area with old chronic right cerebellar lacunar infarct with encephalomalacia. Patient is continued on aspirin and Lipitor. Patient's blood pressure appears to be maintained 130-140. Continue on lisinopril 5 mg twice a day. Physical therapy, social work for disability paperwork. 2. Hypertension appears to be well controlled. Continue on present medication lisinopril. DISPOSITION: Await physical therapy (PT) clearance prior to discharge home. May need home PT for subacute rehabilitation. [facility]
[2017-04-10 14:00] VITALS: BP 136/62
--- NOTE | 2017-04-11 12:04 | DSES ---
DATE OF ADMISSION: 04/05/2017 DATE OF DISCHARGE: 04/10/2017 CONSULTANTS DURING ADMISSION: Dr. Severo Campbell. Echocardiogram read by Dr. Brodie Thomson, farm consultant. PRIMARY DISCHARGE DIAGNOSES: 1. Acute ischemic cerebrovascular accident (CVA) in the left basal ganglia area and the left thalamic area with old chronic right cerebellar lacunar infarct with encephalomalacia. 2. Hypertension. 3. Right sided weakness secondary to left thalamic cerebrovascular accident (CVA). DISCHARGE MEDICATIONS: - aspirin 81 mg daily - Lipitor 40 mg at bedtime - lisinopril 5 mg twice a day HOSPITAL COURSE: This is a 62-year-old female who presented to the emergency room with complaints of lower extremity weakness and right upper extremity weakness. MRI showed acute ischemic stroke left basal ganglia near the left thalamus with prior old right cerebellar infarct with some encephalomalacia. The patient was a smoker of a pack a day. Patient was kept on aspirin 81 mg daily, Lipitor 40 mg daily. EKG showed sinus rhythm. She was kept on telemetry with permissive hypertension with systolic pressure of 140-180 for the 48-72 hours after her CVA. Echocardiogram read by Dr. Brodie Thomson shows ejection fraction of 60-65%, normal atrial septum, trace pericardial effusion, left ventricular diastolic dysfunction. Patient underwent physical therapy and occupational therapy evaluation and was cleared for discharge home on 04/10/2017. CBC and metabolic panel were unremarkable. Duplex ultrasound showed no carotid artery stenosis. Patient was discharged home in stable condition with outpatient physical therapy and neurology followup. White count 6.5, hemoglobin 11, hematocrit 33, platelet count 218, sodium 136, potassium 3.9, chloride 103, bicarb 28, BUN 13, creatinine 0.54, glucose of 86. IMAGING STUDIES: MRA of the brain unremarkable. MRI of the brain small linear left basal ganglia acute infarct. Vascular ultrasound showed no carotid artery stenosis. Chest x-ray 04/05 no acute cardiopulmonary disease. CT of the head 04/05 no evidence of cute hemorrhage or infarct. Arachnoid cyst in the right cerebellum in stable. MTDD
[2017-04-15 10:09] LABS: PROTEIN C ANTIGEN 95 % (60-150); PROTEIN S ANTIGEN FREE 176 % (57-157); PROTEIN S ANTIGEN TOTAL 100 % (60-150); SJOGREN'S ANTI SS-A <0.2 AI (0.0-0.9); SJOGREN'S ANTI SS-B <0.2 AI (0.0-0.9)
== END 2017-04-10 14:35 | disposition home or self-care (01) | DRG 45 ==
LOC: EDBD 16:34 → M ED 16:34 → M ED INP 21:26 → M PCU 04-06 14:20 → M MSPAV 04-08 18:59
PROVIDERS: ADMIT Hospitalist; ATTEND General Practice
DX: I63.9 Cerebral infarction, unspecified (principal); G93.89 Other specified disorders of brain; I69.351 Hemiplegia and hemiparesis following cerebral infarction affecting right dominant side; I10 Essential (primary) hypertension; Z79.82 Long term (current) use of aspirin; Z79.899 Other long term (current) drug therapy; Z85.828 Personal history of other malignant neoplasm of skin; Z82.49 Family history of ischemic heart disease and other diseases of the circulatory system

== ENCOUNTER → 2017-05-16 | Outpatient (RCR) | payer BC, MEDICAID ==
[~2017-05-16] MED LIST: ASPI1TAB PO; ASPI81TAEC PO; ATOR1TAB21 PO; CRES20TA PO; LISI-542 PO; MECL-68 PO; VITMTA PO
== END ==
LOC: M OT 04-23 12:38 → M PT 05-01 13:00 → M OT 05-07 12:06 → M PT 09:15
PROVIDERS: ATTEND Family Medicine
DX: Z51.89 Encounter for other specified aftercare (principal); I63.9 Cerebral infarction, unspecified; M62.81 Muscle weakness (generalized)

== ENCOUNTER 2017-05-23 09:56 | Outpatient (RCR) | payer BC, MEDICAID ==
[~2017-05-23 09:56] MED LIST changes: -ASPI1TAB PO; -CRES20TA PO; -MECL-68 PO; -VITMTA PO
[2017-06-09] MEDS ORDERED: ASPI1TAB PO (00:17)
[2017-06-09] MEDS ORDERED: LISI-542 PO (00:17)
[2017-06-09] MEDS ORDERED: CRES20TA PO (00:17)
[2017-06-09] MEDS ORDERED: VITMTA PO (00:18)
[2017-06-09] MEDS ORDERED: MECL-68 PO (14:07)
== END 2017-06-15 ==
LOC: M PT 09:56
PROVIDERS: ATTEND Family Medicine
DX: Z51.89 Encounter for other specified aftercare (principal); I63.9 Cerebral infarction, unspecified

== ENCOUNTER 2017-06-08 19:22 | Observation (INO) | payer BC, MEDICAID ==
[~2017-06-08] VITALS: Ht 170.2 cm; Wt 61.0 kg
[2017-06-08] MEDS ORDERED: NS 500 ML IV ONE (20:15)
[2017-06-08] MEDS ORDERED: MECLIZINE 25 MG TABLET PO ONE (20:15)
[2017-06-08 20:22] LABS: BASO # 0.1 K/mm3 (0.0-0.2); BASO % 0.7 % (0.0-1.0); EOS # 0.2 K/mm3 (0.0-0.50); EOS % 2.2 % (0.0-3.0); LARGE UNSTAINED CELL # 0.2 K/mm3 (0.0-0.4); LARGE UNSTAINED CELL % 2.2 % (0.0-4.0); LYMPH # 3.1 K/mm3 (1.5-4.5); LYMPH % 34.6 % (24.0-44.0); MEAN CORPUSCULAR HGB CONC 34.6 g/dl (32.0-36.5); MEAN CORPUSCULAR VOLUME 104.2 fl (80.0-96.0); MONO # 0.4 K/mm3 (0.0-0.8); MONO % 4.5 % (0.0-5.0); NEUTROPHILS % 55.9 % (36.0-66.0); PLATELET COUNT, AUTOMATED 404 k/mm3 (150-450); WHITE BLOOD COUNT 8.9 K/mm3 (4.0-10.0)
[2017-06-08 20:27] LABS: INR 0.9
--- NOTE | 2017-06-08 20:30 | REPUSA ---
CT of the head Clinical history: CVA. Protocol: Multiple axial CT images obtained with 5 mm slice thickness were obtained through the head without administration of contrast. Findings: The ventricles and sulci are symmetric bilaterally. There are periventricular areas of low attenuation throughout the deep white matter. This is a small new focal low attenuation lesion in the left basal ganglia, corresponding to a chronic lacunar infarct, which was previously described on th e prior MRI of March 2017. There is no evidence of acute hemorrhage or infarct. Arachnoid cyst in the right cerebellar hemisphere is stable. There is no midline shift, mass effect, or extra-axial fluid c ollection. The osseous structures are unremarkable. The visualized paranasal sinuses and mastoid air cells are clear. Impression: No acute hemorrhage or infarct. Findings are consistent with mild stable chronic small ve ssel chronic small vessel ischemic disease. There has been interval development of a small chronic le ft basal ganglia lacunar infarct, which was seen on the prior MRI of 04/05/2017.
[2017-06-08 20:34] LABS: ANION GAP 7 MEQ/L (8-16); BLOOD UREA NITROGEN 14 MG/DL (7-18); CALCIUM LEVEL 9.1 MG/DL (8.8-10.2); CARBON DIOXIDE LEVEL 30 MEQ/L (21-32); CHLORIDE LEVEL 106 MEQ/L (98-107); CREATININE FOR GFR 0.82 MG/DL (0.55-1.02); GLOMERULAR FILTRATION RATE > 60.0 (>45); GLUCOSE, FASTING 87 MG/DL (80-110); POTASSIUM SERUM 3.8 MEQ/L (3.5-5.1); SODIUM LEVEL 143 MEQ/L (136-145)
[2017-06-08] MEDS ORDERED: ROSUVASTATIN 10 MG TAB (CRESTOR) PO SCH (21:00)
--- NOTE | 2017-06-08 22:40 | REPUSA ---
Clinical history: dizziness. Comparison: 04/05/2017. Technique: [id number] MRA images of the brain were obtained without administration of contrast. 3 -D MIP images were also obtained. Findings: The vascular structures extending from the distal carotid and vertebrobasilar arterial syst ems, through the the [place], demonstrate normal caliber and contour. There is no evidence of an eurysm, stenosis, or thrombosis. Impression: Unremarkable MRA examination of the brain. No significant change since the prior study.
--- NOTE | 2017-06-08 22:40 | REPUSA ---
MRI of the brain Clinical history: CVA. Technique: Multiecho multiplanar MRI images of the brain were obtained without administration of cont rast. Diffusion weighted images with ADC mapping was also obtained. Comparison: 04/05/2017. Findings: The ventricles and sulci are symmetric bilaterally. The brain parenchyma demonstrates scattered periv entricular and subcortical white matter T2 hyperintensity changes. This is consistent with chronic sm all vessel ischemic disease. A focal area restricted diffusion in the left basal ganglia bowel appear s to be hyperintense T2 weighted images, without restricted diffusion. This is consistent with an stephanie lving chronic lacunar infarct. T2 shine through is seen within this region on diffusion weighted imag ing. There is no midline shift, mass effect, or extra-axial fluid collection. The midline intracrania l structures do not demonstrate any gross abnormalities. The arachnoid cyst in the right cerebellar s table. The cervical cranial junction is intact. The orbits are unremarkable. The visualized paranasal sinuses and mastoid air cells are clear. The osseous structures and superficial soft tissues are unr emarkable. The vascular structures demonstrate appropriate flow voids. Impression: 1. No evidence of acute hemorrhage or infarct. No new evidence of restricted diffusion. 2. Chronic lacunar infarct in the left basal ganglia, which demonstrates normal progression since the prior MRI. 3. Otherwise stable moderate chronic small vessel ischemic changes noted.
[2017-06-09] MEDS ORDERED: ASPI1TAB PO (00:17)
[2017-06-09] MEDS ORDERED: CRES20TA PO (00:17)
[2017-06-09] MEDS ORDERED: LISI-542 PO (00:17)
[2017-06-09] MEDS ORDERED: VITMTA PO (00:18)
[2017-06-09] MEDS ORDERED: LISINOPRIL 5 MG TAB PO PRN (01:30)
[2017-06-09] MEDS ORDERED: ONDANSETRON 4MG/2ML VIAL (J2405) IV PRN (01:30)
[2017-06-09] MEDS ORDERED: ACETAMINOPHEN TAB 650MG DOSE (2X325MG) PO PRN (01:30)
[2017-06-09 01:58] VITALS: BP 161/75
[2017-06-09 02:41] VITALS: BP 135/70
[2017-06-09 04:00] VITALS: BP 117/59
[2017-06-09 05:57] LABS: BASO % 0.7 % (0.0-1.0); EOS # 0.3 K/mm3 (0.0-0.50); EOS % 3.9 % (0.0-3.0); LARGE UNSTAINED CELL # 0.1 K/mm3 (0.0-0.4); LARGE UNSTAINED CELL % 1.5 % (0.0-4.0); LYMPH % 38.2 % (24.0-44.0); MEAN CORPUSCULAR HGB CONC 34.6 g/dl (32.0-36.5); MONO # 0.4 K/mm3 (0.0-0.8); MONO % 5.3 % (0.0-5.0); NEUTROPHILS # 3.9 K/mm3 (1.8-7.7); NEUTROPHILS % 50.5 % (36.0-66.0); PLATELET COUNT, AUTOMATED 351 k/mm3 (150-450); RED CELL DISTRIBUTION WIDTH 13.1 % (11.5-14.5); WHITE BLOOD COUNT 7.8 K/mm3 (4.0-10.0)
--- NOTE | 2017-06-09 06:08 | ECGEPIP ---
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
[2017-06-09 06:33] LABS: ALBUMIN/GLOBULIN RATIO 1.11 (1.00-1.93); ALKALINE PHOSPHATASE 67 U/L (45-117); ALT/SGPT 16 U/L (12-78); ANION GAP 7 MEQ/L (8-16); AST/SGOT 13 U/L (15-37); BILIRUBIN,TOTAL 0.3 MG/DL (0.2-1.0); BLOOD UREA NITROGEN 13 MG/DL (7-18); CALCIUM LEVEL 7.9 MG/DL (8.8-10.2); CARBON DIOXIDE LEVEL 28 MEQ/L (21-32); CHLORIDE LEVEL 109 MEQ/L (98-107); CHOLESTEROL LEVEL 126 MG/DL (< 200); CREATININE FOR GFR 0.61 MG/DL (0.55-1.02); GLOMERULAR FILTRATION RATE > 60.0 (>45); GLUCOSE, FASTING 80 MG/DL (80-110); PHOSPHORUS LEVEL 3.7 MG/DL (2.5-4.9); POTASSIUM SERUM 3.5 MEQ/L (3.5-5.1); SODIUM LEVEL 144 MEQ/L (136-145); TOTAL PROTEIN 5.7 GM/DL (6.4-8.2); TRIGLYCERIDES LEVEL 85 MG/DL (<150)
[2017-06-09 08:03] VITALS: BP 111/59
[2017-06-09] MEDS ORDERED: MECLIZINE 25 MG TABLET PO SCH (09:00)
[2017-06-09] MEDS ORDERED: ASPIRIN 81 MG ENTERIC TAB PO SCH (09:00)
[2017-06-09] MEDS ORDERED: MULTIVITAMINS/MINERALS THERAP 1 TAB PO SCH (09:00)
[2017-06-09 12:00] VITALS: BP 120/62
[2017-06-09] MEDS ORDERED: MECL-68 PO (14:07)
--- NOTE | 2017-06-09 15:54 | HPE ---
DATE OF ADMISSION: 06/08/2017 PRIMARY CARE PROVIDER: Dr. Bonnie Cazares. CHIEF COMPLAINT: Vertigo. HISTORY OF PRESENT ILLNESS: This is a 62-year-old female with a history of a cerebrovascular accident (CVA) treated in March of 2017. She had left-sided weakness. She went through rehabilitation. She has been at home doing well until the last two days when she has developed overall weakness, headache, and dizziness where the room spins around to the point where she has fallen in the last two days. No blurry or double vision. She has been slightly nauseated with it. It was happening at rest, and worsened when she tried to close her eyes. She came to the emergency room. Upon arrival, blood pressure was elevated at 171/84, pulse 88, respirations 18, temperature was 98.4. Oxygen saturation was 98% on room air. Laboratory studies were done. CT scan was done. She was given intravenous (IV) normal saline. She was given meclizine 50 mg with no improvement. She was given Valium 5 mg IV once. She still has the vertigo. LABORATORY DATA: WBC was 8.9, hemoglobin 12.9, hematocrit 37.2, platelets were 404. Electrolytes were normal anion gap was seven. BUN was 14, creatinine 0.82. Troponin was 0.05. CK-MB was 1.44. CPK was 69. Fasting glucose was 87. PT was 12.2, INR was 0.90, PTT was 30.9. A CT of the brain was done which showed no acute hemorrhage or infarct. Findings consistent with mild stable chronic small vessel disease. Interval development of a small, chronic left basal ganglia infarct, which was last seen on prior MRI 04/05/2017. An MRA without contrast was done which showed vascular structures extending from the distal carotid and vertebral basilar arterial system to the [place] normal caliber and contour. No evidence of aneurysm, stenosis or thrombosis. MRI of the brain showed no evidence of acute hemorrhage or infarct. No evidence of restricted diffusion. Chronic lacunar infarct in the left basal ganglia which demonstrates normal progression since the prior MRI. Otherwise stable moderate chronic small vessel ischemic changes noted. Assessment was done. Patient was unable to even sit up without severe vertigo. She was unable to be stood secondary to overall weakness and vertigo, accompanied with nausea. The patient will be admitted for observation to the service of Dr. Noland for further workup, neurological checks, physical therapy evaluation. ALLERGIES: No known allergies. SOCIAL HISTORY: She is single. She does not drink alcohol. She does not smoke cigarettes. She does not use recreational drugs. PAST MEDICAL HISTORY: 1. Hypertension. 2. CVA 04/05/2017. 3. Hypercholesterolemia. PAST SURGICAL HISTORY: 1. Removal of basal cell skin from the nose. 2. Colonoscopy times two. CURRENT MEDICATIONS: - aspirin 81 mg by mouth daily - lisinopril 5 mg by mouth daily - Crestor 20 mg by mouth at bedtime - multivitamin one by mouth daily FAMILY HISTORY: Noncontributory. REVIEW OF SYSTEMS: Had mild headache. No blurred or double vision. Had vertigo. No fever, no chills. No tinnitus. No hoarseness or difficulty swallowing. Breasts: No masses. Cardiovascular: No complaints of chest pain, shortness of breath, palpitations or edema. Respiratory: No chronic cough, no sputum production. No hemoptysis, no orthopnea, no wheeze. Gastrointestinal: She has nausea, no vomiting or diarrhea. Hematologic: No history of anemia. Neurologic: Has had a history of CVA with resultant left-sided weakness. Is currently experiencing vertigo. Psychologic: No anxiety, depression or suicidal ideation. PHYSICAL EXAMINATION: A 62-year-old female who looks much older than her stated years. VITAL SIGNS: Blood pressure 146/66, pulse 60, respirations 19, temperature 98. GENERAL: The patient is alert and oriented times three. HEENT: Pupils equal and react to light. Extraocular movement intact. Sclerae clear. Conjunctivae normal. No facial asymmetry. Pharynx, tongue, gums pink and moist. Tongue is midline. NECK: Supple without lymphadenopathy. No thyromegaly. No goiter. Carotids 2+ without bruits. CHEST: Clear to auscultation without wheeze or retraction. HEART: Regular. ABDOMEN: Benign. Bowel sounds are positive. GENITOURINARY/RECTAL: Not done. EXTREMITIES: Show slight weakness on the less. No cyanosis, clubbing or edema. Peripheral pulses equal and palpable bilaterally. SKIN: Warm and dry. IMPRESSION AND PLAN: 1. Severe vertigo. 2. Nausea. 3. History of cerebrovascular accident. 4. History of hypertension. 5. History of hypercholesterolemia. Admit to progressive care unit (PCU). Continue neuro checks, vital signs. [facility]. Physical therapy (PT) evaluation.
--- NOTE | 2017-06-10 07:11 | REP ---
CHEST SINGLE VIEW: COMPARISON: 04/05/2017 There is no evidence of acute infiltrate. No pleural effusion is seen. The heart is normal in size. The mediastinal silhouette is unremarkable. The visualized osseous structures are intact. IMPRESSION: No acute pulmonary disease. Signed by Mason Shultz MD 06/10/2017 05:26 P
[2017-06-10] MEDS ORDERED: INFLUENZA QUADRIVALENT PF VACCINE 0.5ML SYRINGE (90686) IM ONE (09:00)
--- NOTE | 2017-06-10 15:03 | DS.PDOC ---
Discharge Summary General Date of Admission Jun 08, 2017 at 19:23 Date of Discharge 06/09/17 Discharge Summary PROCEDURES PERFORMED DURING STAY: None. ADMITTING/DISCHARGE DIAGNOSES: 1. . Vertigo COMPLICATIONS/CHIEF COMPLAINT: Vertigo. HISTORY OF PRESENT ILLNESS: . 62-year-old female with past medical history of hypertension, dyslipidemia, tobacco use, and recent admission for left basal ganglia and left thalamic CVA in March 2017, with mild residual deficits on the right side. In addition, the patient did state that she had residual dizziness associated with the event. The patient presented back to the ER on 06/09 with increased dizziness over the last 48 hours. The patient had stated that she also felt weak overall, but denied any acute focal neurological deficits such as facial numbness/tingling, or worsening of any weakness in the extremities. She denied any headaches, fevers, chills, chest pain, shortness of breath, abdominal pain, or any nausea/ vomiting/diarrhea. The patient subsequently presented to the ER for further evaluation. In the ER, a CT scan of the head revealed no acute findings. An MRI and MRA of the brain also revealed no acute findings. The patient was admitted to the hospitalist service for further management. During hospitalization, the patient was provided supportive treatment and started on meclizine 3 times a day. The patient had no other neurological events. Her dizziness subsequently improved. She was seen by physical therapy, who cleared her for discharge home. At this time, the patient states that she is feeling much better and is eager to return home. I did discuss symptoms/ signs of acute stroke with the patient, and advised her to seek treatment for any of the aforementioned symptoms if they were to occur. The patient verbalized understanding of the same. I also extensively discussed the need for the patient to quit smoking tobacco. At this time, the patient will be discharged home. I have asked the patient to follow-up with her primary care physician within 7 days for further management of her chronic comorbidities. DISCHARGE MEDICATIONS: Please see below. ALLERGIES: Please see below. PHYSICAL EXAMINATION ON DISCHARGE: VITAL SIGNS: Please see below. GENERAL: Awake, alert, oriented 4 HEENT: Normocephalic, atraumatic NECK: No JVD CARDIOVASCULAR EXAMINATION: Normal rate, normal S1, S2 RESPIRATORY EXAMINATION: Clear to auscultation bilaterally ABDOMINAL EXAMINATION: Soft, nontender, nondistended EXTREMITIES: No swelling or tenderness LABORATORY DATA: Please see below. IMAGING: MRI of the brain Clinical history: CVA. Technique: Multiecho multiplanar MRI images of the brain were obtained without administration of contrast. Diffusion weighted images with ADC mapping was also obtained. Comparison: 04/05/2017. Findings: The ventricles and sulci are symmetric bilaterally. The brain parenchyma demonstrates scattered periventricular and subcortical white matter T2 hyperintensity changes. This is consistent with chronic small vessel ischemic disease. A focal area restricted diffusion in the left basal ganglia bowel appears to be hyperintense T2 weighted images, without restricted diffusion. This is consistent with an evolving chronic lacunar infarct. T2 shine through is seen within this region on diffusion weighted imaging. There is no midline shift, mass effect, or extra-axial fluid collection. The midline intracranial structures do not demonstrate any gross abnormalities. The arachnoid cyst in the right cerebellar stable. The cervical cranial junction is intact. The orbits are unremarkable. The visualized paranasal sinuses and mastoid air cells are clear. The osseous structures and superficial soft tissues are unremarkable. The vascular structures demonstrate appropriate flow voids. Impression: 1. No evidence of acute hemorrhage or infarct. No new evidence of restricted diffusion. 2. Chronic lacunar infarct in the left basal ganglia, which demonstrates normal progression since the prior MRI. 3. Otherwise stable moderate chronic small vessel ischemic changes noted. Clinical history: dizziness. Comparison: 04/05/2017. Technique: [id number] MRA images of the brain were obtained without administration of contrast. 3-D MIP images were also obtained. Findings: The vascular structures extending from the distal carotid and vertebrobasilar arterial systems, through the [place], demonstrate normal caliber and contour. There is no evidence of aneurysm, stenosis, or thrombosis. Impression: Unremarkable MRA examination of the brain. No significant change since the prior study. PROGNOSIS: Fair ACTIVITY: As tolerated. DIET: . 2 g low sodium diet DISCHARGE PLAN: DISPOSITION: 01 Home, Self-Care. DISCHARGE INSTRUCTIONS: 1. . Follow-up with primary care physician within 7 days 2. . Return to the ER for any acute emergencies ITEMS TO FOLLOWUP ON ON OUTPATIENT: 1. . Abstain from tobacco use DISCHARGE CONDITION: Stable. TIME SPENT ON DISCHARGE: Greater than 30 minutes. Vital Signs/I&Os Vital Signs Date Time Temp Pulse Resp B/P (MAP) Pulse Ox O2 Delivery O2 Flow Rate FiO2 06/09/17 12:00 97.8 60 20 120/62 (81) 99 Room Air Discharge Medications Scheduled Aspirin (Aspirin 81) 81 Mg Tab, 81 MG PO DAILY, (Reported) Multivitamins *[facility] STOCKED* (Thera M Plus *[facility] STOCKED*) 1 Tab Tab, 1 TAB PO DAILY, (Reported) Rosuvastatin Calcium (Crestor) 20 Mg Tab, 20 MG PO QHS, (Reported) Scheduled PRN Lisinopril (Lisinopril) 5 Mg Tab, 5 MG PO DAILY PRN for SYSTOLIC >140, (Reported ) Meclizine HCl (Meclizine HCl) 25 Mg Tab, 25 MG PO TIDP PRN for DIZZINESS Allergies Coded Allergies: No Known Allergies (Unverified , 04/05/17) ERASMO PENN MD Jun 10, 2017 15:03
== END 2017-06-09 15:12 | disposition home or self-care (01) ==
LOC: M ED 19:22 → M ED INP 19:23 → M PCU 06-09 01:57
PROVIDERS: ADMIT Internal Medicine; ATTEND Internal Medicine
DX: R42 Dizziness and giddiness (principal); I10 Essential (primary) hypertension; E78.00 Pure hypercholesterolemia, unspecified; F17.210 Nicotine dependence, cigarettes, uncomplicated; Z86.73 Personal history of transient ischemic attack (TIA), and cerebral infarction without residual deficits; Z79.82 Long term (current) use of aspirin; Z79.899 Other long term (current) drug therapy; Z79.02 Long term (current) use of antithrombotics/antiplatelets
CPT/HCPCS: 36415; 70450; 70544; 70551; 71010; 80048; 80053; 82465; 82550; 82553; 83615; 84100; 84478; 85025; 85610; 85730; 86850; 86900; 86901; 93005; 93041; 94760; 96374; 97161; 99285; J3360

== ENCOUNTER → 2017-07-08 | Outpatient (CLI) | payer MEDICAID ==
[~2017-07-08] MED LIST changes: +ASPI1TAB PO; +CRES20TA PO; +MECL-68 PO; +VITMTA PO
[2017-07-08 09:41] LABS: FREE T4 1.01 NG/DL (0.76-1.46)
== END ==
LOC: M LAB 08:25
PROVIDERS: ATTEND Physician Assistant Medical
DX: R00.2 Palpitations (principal); I10 Essential (primary) hypertension; I63.9 Cerebral infarction, unspecified

== ENCOUNTER → 2018-03-13 | Outpatient (CLI) | payer OTHER ==
[2018-03-13 09:19] LABS: CHOLESTEROL LEVEL 145 MG/DL (<200); CHOLESTEROL RISK RATIO 1.933 (<5); HDL CHOLESTEROL 75 MG/DL (>40); LDL CHOLESTEROL 53.4 MG/DL (<100); NON-HDL-C 70 MG/DL; TRIGLYCERIDES LEVEL 83 MG/DL (<150)
== END ==
LOC: M LAB 07:45
DX: I63.9 Cerebral infarction, unspecified (principal)
CPT/HCPCS: 80061

== ENCOUNTER → 2018-06-03 | Outpatient (REF) | payer OTHER ==
[2018-06-05 15:01] LABS: HPV HYBRID CAPTURE II Negative (Negative)
== END ==
LOC: M SFHCWAGY 10:30
DX: Z12.4 Encounter for screening for malignant neoplasm of cervix (principal)

== ENCOUNTER → 2018-06-03 | Outpatient (CLI) | payer OTHER | LOC: M WHC 10:10 | DX: Z12.31 Encounter for screening mammogram for malignant neoplasm of breast (principal); Z85.828 Personal history of other malignant neoplasm of skin; Z80.0 Family history of malignant neoplasm of digestive organs; Z13.820 Encounter for screening for osteoporosis | CPT/HCPCS: 77067 ==

== ENCOUNTER → 2018-06-16 | Outpatient (CLI) | payer OTHER ==
[2018-06-16 12:09] LABS: ANION GAP 7 MEQ/L (8-16); BLOOD UREA NITROGEN 20 MG/DL (7-18); CALCIUM LEVEL 8.9 MG/DL (8.8-10.2); CARBON DIOXIDE LEVEL 31 MEQ/L (21-32); CHLORIDE LEVEL 104 MEQ/L (98-107); CHOLESTEROL LEVEL 178 MG/DL (<200); CHOLESTEROL RISK RATIO 2.119 (<5); CREATININE FOR GFR 0.83 MG/DL (0.55-1.30); GLOMERULAR FILTRATION RATE > 60.0 (>45); GLUCOSE, FASTING 88 MG/DL (70-100); HDL CHOLESTEROL 84 MG/DL (>40); LDL CHOLESTEROL 86 MG/DL (<100); NON-HDL-C 94 MG/DL; POTASSIUM SERUM 3.9 MEQ/L (3.5-5.1); SODIUM LEVEL 142 MEQ/L (136-145); TRIGLYCERIDES LEVEL 40 MG/DL (<150)
[2018-06-16 13:04] LABS: HEP C VIRUS AB SCREEN MEDICARE 0.1 INDEX (<0.8)
== END ==
LOC: M LAB 10:35
DX: Z11.59 Encounter for screening for other viral diseases (principal); I63.9 Cerebral infarction, unspecified; I10 Essential (primary) hypertension
CPT/HCPCS: 80061

== ENCOUNTER 2019-02-07 16:07 | Inpatient (IN) | payer OTHER ==
[~2019-02-07] VITALS: Ht 170.2 cm; Wt 55.8 kg
[~2019-02-07 16:07] MED LIST changes: -ASPI1TAB PO; +ASPI81TA26 PO; -CRES20TA PO; +CRES20TA2 PO
[2019-02-07] MEDS ORDERED: NS 1,000 ML IV ONE ×2 (16:30→18:00)
--- NOTE | 2019-02-07 16:54 | REP ---
Clinical: Headache and vomiting. Comparison: 06/08/2017 . Findings: Age-related atrophy and microvascular ischemic changes are appreciated. The ventricles and sulci are symmetric. Shultz-white differentiation is maintained. There is no evidence for acute intracranial hemorrhage, mass/mass effect, pathology or infarction. No extra-axial fluid collection. Calvarium is intact. Paranasal sinuses and mastoid air cells are clear. Impression: Age related atrophy and microvascular ischemic changes. No acute intracranial hemorrhage, infarction, or mass/mass effect. Electronically Signed by Elmer Acosta MD 02/07/2019 04:44 P
--- NOTE | 2019-02-07 17:00 | REP ---
Clinical: Chest and abdominal pain . Comparison: 06/08/2017 . Technique: PA and lateral. Findings: The mediastinum and cardiac silhouette are normal. The lung [place] are clear and without acute consolidation, effusion, or pneumothorax. The skeletal structures are intact and normal. Impression: 1. No acute cardiopulmonary process. Electronically Signed by Elmer Acosta MD 02/07/2019 04:50 P
[2019-02-07 17:03] LABS: BASO # 0.1 10^3/uL (0.0-0.2); BASO % 0.7 % (0.0-1.0); EOS # 0.1 10^3/uL (0.0-0.50); EOS % 0.7 % (0.0-3.0); HEMATOCRIT 39.3 % (36.0-47.0); HEMOGLOBIN 14.2 g/dl (12.0-15.5); LYMPH # 2.8 10^3/uL (1.5-4.5); LYMPH % 31.3 % (24.0-44.0); MEAN CORPUSCULAR HEMOGLOBIN 35.9 pg (27.0-33.0); MEAN CORPUSCULAR HGB CONC 36.1 g/dl (32.0-36.5); MEAN CORPUSCULAR VOLUME 99.5 fl (80.0-96.0); MONO # 0.7 10^3/uL (0.0-0.8); MONO % 8.2 % (0.0-5.0); NEUTROPHILS # 5.3 10^3/uL (1.8-7.7); NEUTROPHILS % 58.8 % (36.0-66.0); PLATELET COUNT, AUTOMATED 392 10^3/uL (150-450); RED BLOOD COUNT 3.95 10^6/uL (4.00-5.40)
[2019-02-07 18:10] LABS: ALBUMIN 4.5 GM/DL (3.2-5.2); ALT/SGPT 19 U/L (12-78); AMYLASE 90 U/L (25-115); BILIRUBIN,DIRECT 0.3 MG/DL (0.0-0.2); BILIRUBIN,TOTAL 0.6 MG/DL (0.2-1.0); BLOOD UREA NITROGEN 56 MG/DL (7-18); CALCIUM LEVEL 9.7 MG/DL (8.8-10.2); CARBON DIOXIDE LEVEL 20 MEQ/L (21-32); CHLORIDE LEVEL 95 MEQ/L (98-107); CK-MB VALUE MASS < 1.0 NG/ML (<3.6); CPK CREATINE PHOSPHOKINASE 39 U/L (26-192); CREATININE FOR GFR 5.15 MG/DL (0.55-1.30); GLOMERULAR FILTRATION RATE 9.1 (>45); GLUCOSE, FASTING 96 MG/DL (70-100); LIPASE 620 U/L (73-393); MAGNESIUM LEVEL 1.9 MG/DL (1.8-2.4); MB/CK RELATIVE INDEX 2.56 (< OR =4); POTASSIUM SERUM 2.8 MEQ/L (3.5-5.1); SODIUM LEVEL 130 MEQ/L (136-145); TOTAL PROTEIN 7.4 GM/DL (6.4-8.2); TROPONIN I 0.04 NG/ML (< 0.10)
[2019-02-07] MEDS ORDERED: KCL 10MEQ/100ML SWI (KRUN) 10 MEQ in APPROPRIATE DILUENT 1 EA IV ONE (18:30)
[2019-02-07] MEDS ORDERED: NS 1,000 ML IV SCH (18:37)
[2019-02-07] MEDS ORDERED: GEMF600T5 PO (18:51)
--- NOTE | 2019-02-07 18:54 | REP ---
Clinical: Abdominal pain and vomiting. Technique: Axial noncontrast images from the lung bases to the pubic symphysis with coronal and sagittal re-formations. Findings: Lung bases are clear. Visualized heart and pericardium normal. Liver, spleen, pancreas, gallbladder, bilateral adrenal glands and kidneys are normal. The enteric system demonstrates fluid-filled loops of small and large bowel raising the possibility of a mild enterocolitis. No bowel obstruction. Normal terminal ileum identified in the right lower quadrant. Pelvis demonstrates partially collapsed normal bladder and age-appropriate uterus/adnexa. No ascites. No free air. No adenopathy. Atherosclerotic changes to the aorta without aneurysm. Musculoskeletal structures demonstrate degenerative changes without focal osseous abnormality. Impression: 1. Fluid-filled loops of small large bowel may reflect enterocolitis and should be correlated clinically. 2. No further acute abdominopelvic pathology appreciated. Electronically Signed by Elmer Acosta MD 02/07/2019 06:46 P
[2019-02-07] MEDS ORDERED: PERCOCET 5MG/325MG TAB PO PRN (20:00)
--- NOTE | 2019-02-07 20:05 | HPEPDOC ---
[facility] Medical History & Physical Date of Admission February 07, 2019 Date of Service: February 07, 2019 History and Physical DATE OF ADMISSION 02/07/2019 PCP Bonnie Cazares CHIEF COMPLAINT: Queasiness HISTORY OF PRESENT ILLNESS: Patient is a 63-year-old female who presents to the emergency room with queasiness for the last 2 weeks. She's had several episodes of retching at night without significant emesis. She denies any blood associated with it is not happening during the day. She tells me she recently started Flonase and when she does vomit up doesn't look like Flonase since not in her opinion. She denies any significant associated abdominal pain she tells me that she has chronic diarrhea but is not any significant worsening of this. She denies any blood in the diarrhea. She denies any sick contacts. She complains that she is always cold. He tells me she has had very poor by mouth intake for the last several days. He tells me that she does have some lightheadedness when standing up straight from a laying position but would not describe this as dizziness. She denies any other changes in medication or changes in diet. She denies any changes in her urinary habits other than going slightly less than usual. Otherwise patient denies weight loss, hair loss, headache, visual changes, chest pain, shortness of breath, cough, muscle aches, worsening arthritis, change in mood PAST MEDICAL HISTORY: 1. Hypertension. 2. Dyslipidemia. 3. And CVA 4. Urinary tract infection 5. Depression 6. 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 HOME MEDICATIONS: Please see below. ALLERGIES: Please see below PAST SURGICAL HISTORY: 1. Colonoscopy. 2. Left wrist ganglion cyst removal. 3. Tonsillectomy 4. 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 ETOH: One to 2 drinks per night last drink was 2 days ago, Illicit drug use: Denies, Tattoos done unprofessionally: Denies. IV drug use: Denies CODE STATUS: Full code FAMILY HISTORY:Reviewed and noncontributory REVIEW OF SYSTEMS: 10 systems reviewed and negative other than HPI PHYSICAL EXAMINATION: VITAL SIGNS: Temperature 98.2, pulse 74, respiratory rate 17, blood pressure 91/51, pulse oximetry 97 % on room air. GENERAL: Pleasant elderly female slim sitting up in bed awake alert oriented speaking in complete sentences no acute distress HEENT: Dry mucous membranes no elevation and CVP CARDIOVASCULAR: S1 S2 regular no additional heart sounds appreciated. She is not tachycardic RESPIRATORY: Clear to auscultation bilaterally. ABDOMINAL: Bowel sounds present abdomen soft and nontender even to deep palpation EXTREMITIES: No clubbing cyanosis or edema NEUROLOGICAL: Spontaneously moves all 4 extremities cranial 2 through 12 grossly intact no gross focal deficits appreciated PSYCHOLOGICAL: Appropriate LABORATORY DATA: See below. MICROBIOLOGY: Please see below. IMAGING: Chest x-ray:1. No acute cardiopulmonary process Head CT:Age related atrophy and microvascular ischemic changes. No acute intracranial hemorrhage, infarction, or mass/mass effect. CT abdomen pelvis:1. Fluid-filled loops of small large bowel may reflect enterocolitis and should be correlated clinically. 2. No further acute abdominopelvic pathology appreciated. ASSESSMENT & PLAN: This is a 63-year-old female presenting with acute renal failure associated with nausea and queasiness PROBLEMS: 1. Acute renal failure: Possibly prerenal her history of retching as well as poor by mouth intake and her hypotension are certainly suggestive of this. I will check a fractional excretion of sodium CONTINUE with IV hydration she received 2 L in the emergency room I'll continue her on KCl at 1 50 mL per hour. We'll recheck a BMP and follow her electrolytes closely. CT of her abdomen and pelvis does not reveal any hydronephrosis or atrophy of her kidney suggesting that this is more of acute process as documented by her previous lab work of a normal creatinine 7 months ago. I'll also check a urinalysis. Should her symptom s fail to improve and her renal function fail to improve by tomorrow morning would strongly consider inpatient nephrology consultation. 2. Hypokalemia: Likely secondary to dehydration I'll continue with normal saline with potassium supplementation 40 mEq per bag and monitor magnesium level has been added on and she is not significantly depleted of this 3. Hypovolemic hyponatremia: Secondary to dehydration monitor for improvement with supplementation. This is likely the etiology for her hypochloremia as well continue to monitor closely as we rehydrate her 4. Diarrhea: She has chronic diarrhea and has been told she has microscopic colitis as well as in the past. I see no documented history of this however if this indicates she may benefit from steroids but is clearly worsened at this time order some other process causing worsening of her diarrhea abdominal symptoms. We'll check a GI PCR panel as well as a TSH given her unusual presentation 5. Hypotension: She is not tachycardic she does not have significant leukocytosis she is not febrile but suspicion for any sepsis is quite low, she has a history of urinary tract infections that do not feel like this. I will check a UA urine culture blood cultures and monitor closely for the time being I'll hold off on antibiotics. We'll check orthostatics 6. Hypertension: As outlined above holding her lisinopril 7. Dyslipidemia: We'll hold her gemfibrozil 8. Elevated lipase: She is certainly hypotensive and dehydrated, for the time be ing I'll make her nothing by mouth provided with aggressive IV fluids and antiemetics. Her CT abdomen is unrevealing for any pancreatic inflammation and she does not have any significant abdominal pain is somewhat suspicion for this is lower. However will treat her appropriately and monitor for improvement given her significant retching the last 2 weeks. 9. Seasonal allergies: Hold Flonase 10. Tobacco abuse: Cessation counseling provided 11. Alcohol abuse: Patient denies any problems with this she is not exhibiting any signs or symptoms of withdrawal we'll monitor closely, she does have an elevated MCV will check folate and B12 levels DVT PROPHYLAXIS:Heparin DISPOSITION: Patient is admitted to the progressive care unit status her prognosis is certainly guarded given her acute renal failure and electrolyte abnormalities Vital Signs Vital Signs Date Time Temp Pulse Resp B/P (MAP) Pulse Ox O2 Delivery O2 Flow Rate FiO2 02/07/19 19:15 97/54 (68) 02/07/19 19:07 69 100 02/07/19 16:07 98.2 17 Room Air Laboratory Data Labs 24H Laboratory Tests 2 02/07/19 16:42: Immature Granulocyte % (Auto) 0.3, White Blood Count 9.0, Red Blood Count 3.95L, Hemoglobin 14.2, Hematocrit 39.3, Mean Corpuscular Volume 99.5H, Mean Corpuscular Hemoglobin 35.9H, Mean Corpuscular Hemoglobin Concent 36.1, Red Cell Distribution Width 11.3L, Platelet Count 392, Neutrophils (%) (Auto) 58.8, Lymphocytes (%) (Auto) 31.3, Monocytes (%) (Auto) 8.2H, Eosinophils (%) (Auto) 0.7, Basophils (%) (Auto) 0.7, Neutrophils # (Auto) 5.3, Lymphocytes # (Auto) 2.8, Monocytes # (Auto) 0.7, Eosinophils # (Auto) 0.1, Basophils # (Auto) 0.1, Nucleated Red Blood Cells % (auto) 0.0, Anion Gap 15, Glomerular Filtration Rate 9.1L, Lactic Acid Level 1.4, Calcium Level 9.7, Magnesium Level 1.9, Aspartate Amino Transf (AST/SGOT) 19, Alanine Aminotransferase (ALT/SGPT) 19, Alkaline Phosphatase 133H, Total Bilirubin 0.6, Direct Bilirubin 0.3H, Total Creatine Kinase 39, Creatine Kinase MB < 1.0, Creatine Kinase MB Relative Index 2.56, Troponin I 0.04, Total Protein 7.4, Albumin 4.5, Albumin/Globulin Ratio 1.55, Amylase Level 90, Lipase 620H 02/07/19 19:32: CBC/BMP Laboratory Tests 02/07/19 16:42 Red Blood Count 3.95 L, Mean Corpuscular Volume 99.5 H, Mean Corpuscular Hemog lobin 35.9 H, Mean Corpuscular Hemoglobin Concent 36.1, Red Cell Distribution Width 11.3 L, Neutrophils (%) (Auto) 58.8, Lymphocytes (%) (Auto) 31.3, Monocytes (%) (Auto) 8.2 H, Eosinophils (%) (Auto) 0.7, Basophils (%) (Auto) 0.7, Neutrophils # (Auto) 5.3, Lymphocytes # (Auto) 2.8, Monocytes # (Auto) 0.7, Eosinophils # (Auto) 0.1, Basophils # (Auto) 0.1 Microbiology Microbiology 02/07/19 Blood Culture, Received Pending 02/07/19 Blood Culture, Received Pending Home Medications Scheduled Aspirin (Aspirin EC) 81 Mg Tab, 81 MG PO DAILY Gemfibrozil (Gemfibrozil) 600 Mg Tablet, 600 MG PO DAILY Lisinopril (Lisinopril) 5 Mg Tab, 5 MG PO DAILY Multivitamins (Thera M Plus Tablet) 1 Tab Tab, 1 TAB PO DAILY Allergies Coded Allergies: No Known Allergies (Unverified , 7/21/17) A-FIB/CHADSVASC A-FIB History Current/History of A-Fib/PAF?: No KEVIN STARK MD February 07, 2019 20:05
[2019-02-07] MEDS: KCL 40MEQ in NS 1000ML 1,000 ML IV SCH (20:09)
[2019-02-07 20:21] LABS: MAGNESIUM LEVEL 1.8 MG/DL (1.8-2.4); THYROID STIMULATING HORMONE 0.623 uIU/ML (0.358-3.740)
[2019-02-07 20:36] LABS: ETHYL ALCOHOL (ETHANOL) < 0.003 % (0.000-0.010)
[2019-02-07] MEDS: HEPARIN SOD (PORCINE) 5000 UNITS/ML VIAL SC SCH (22:15)
[2019-02-08 01:23] LABS: CALCIUM LEVEL 7.9 MG/DL (8.8-10.2); CREATININE FOR GFR 3.95 MG/DL (0.55-1.30); GLOMERULAR FILTRATION RATE 12.3 (>45); POTASSIUM SERUM 3.2 MEQ/L (3.5-5.1)
[2019-02-08] MEDS: KCL 40MEQ in NS 1000ML 1,000 ML IV SCH ×2 (02:36→08:37)
[2019-02-08] MEDS: ONDANSETRON 4MG/2ML VIAL (J2405) IV PRN (02:37)
[2019-02-08 03:00] VITALS: BP 104/56
[2019-02-08 06:35] VITALS: BP 99/51
[2019-02-08 07:10] LABS: HEMATOCRIT 33.2 % (36.0-47.0); MEAN CORPUSCULAR HEMOGLOBIN 35.1 pg (27.0-33.0); MEAN CORPUSCULAR HGB CONC 34.6 g/dl (32.0-36.5); MEAN CORPUSCULAR VOLUME 101.2 fl (80.0-96.0); PLATELET COUNT, AUTOMATED 339 10^3/uL (150-450); RED BLOOD COUNT 3.28 10^6/uL (4.00-5.40); WHITE BLOOD COUNT 7.6 10^3/uL (4.0-10.0)
[2019-02-08 07:22] LABS: CHOLESTEROL RISK RATIO 2.062 (<5); CREATININE FOR GFR 3.36 MG/DL (0.55-1.30); GLOMERULAR FILTRATION RATE 14.8 (>45); POTASSIUM SERUM 3.8 MEQ/L (3.5-5.1)
[2019-02-08 07:30] LABS: HEMOGLOBIN 11.5 g/dl (12.0-15.5)
[2019-02-08 08:00] VITALS: BP_SYST 104; BP_SYST 111; BP_SYST 117; BP_DIAS 52; BP_DIAS 56; BP_DIAS 57
[2019-02-08] MEDS: PANTOPRAZOLE 40MG INJ (PROTONIX) (C9113) IV SCH (08:37)
[2019-02-08] MEDS: HEPARIN SOD (PORCINE) 5000 UNITS/ML VIAL SC SCH ×2 (08:38→21:27)
[2019-02-08 12:00] VITALS: BP 105/51
--- NOTE | 2019-02-08 12:50 | IPNPDOC ---
Date Seen The patient was seen on 02/08/19. Progress Note SUBJECTIVE: Patient tells me that overnight she did have some nausea and one episode of dry heaves which is alleviated by Zofran. She tells me that her symptoms have improved queasiness has improved otherwise patient denies chest pain shortness breath fevers chills OBJECTIVE PHYSICAL EXAMINATION: VITAL SIGNS: Please see below. GENERAL: Pleasant elderly woman appears older than stated age sitting up in bed awake alert oriented speaking in complete sentences no acute distress HEENT: Moist mucous membranes no elevation and CVP CARDIOVASCULAR: S1 S2 regular no additional heart sounds appreciated. RESPIRATORY: Clear to auscultation bilaterally. ABDOMINAL: Bowel sounds present abdomen soft and nontender EXTREMITIES: No clubbing cyanosis or edema NEUROLOGICAL: Spontaneously moves all 4 extremities cranial 2 through 12 grossly intact no gross focal deficits appreciated PSYCHOLOGICAL: Appropriate LABORATORY DATA, MICROBIOLOGY: Please see below. IMAGING: Chest x-ray:1. No acute cardiopulmonary process Head CT:Age related atrophy and microvascular ischemic changes. No acute intracranial hemorrhage, infarction, or mass/mass effect. CT abdomen pelvis:1. Fluid-filled loops of small large bowel may reflect enterocolitis and should be correlated clinically. 2. No further acute abdominopelvic pathology appreciated. ASSESSMENT & PLAN: This is a 63-year-old female presenting with acute renal failure associated with nausea and queasiness PROBLEMS: 1. Acute renal failure: Likely prerenal related to poor by mouth intake and dehydration from retching. The patient has also been on lisinopril. At this time holding lisinopril provided with IV fluid resuscitation does appear to be improving her renal function quite rapidly mass effect will continue to do so. Urinalysis is yet to be collected although ordered yesterday. I will transition her IV fluids from KCl to lactated Ringer's given that her potassium is corrected and her chloride level is rising 2. Hypokalemia: Resolved, Likely secondary to dehydration 3. Hypovolemic hyponatremia: Resolved, Secondary to dehydration 4. Diarrhea: It still persists, her GI PCR panel is yet to be collected she does have one watery bowel movement that was mixed with urinary nursing informed me me they were unable to collect it. She has chronic diarrhea and has been told she has microscopic colitis as well as in the past. I see no documented history of this however if this is true she may benefit from steroids but is clearly worsened at this time order some other process causing worsening of her diarrhea abdominal symptoms. 5. Hypotension: She is not tachycardic she does not have significant leukocytosis she is not febrile, BP appears to be improving with hydration as such we'll continue. I suspect may be normotensive the next 24 hours. Her symptoms of orthostasis have resolved with fluid hydration 6. Hypertension: As outlined above holding her lisinopril 7. Dyslipidemia: We'll hold her gemfibrozil 8. Elevated lipase: She is certainly hypotensive and dehydrated, continue with IV fluids and antiemetics. Her CT abdomen is unrevealing for any pancreatic inflammation and she does not have any significant abdominal pain, I will advance her to a clear liquid diet and advance further as tolerated. I 9. Seasonal allergies: Hold Flonase patient wishes to avoid using this medication from future. I'll provide her with azelastine for her chronic postnasal drip 10. Tobacco abuse: Cessation counseling provided 11. Alcohol abuse: Patient denies any problems with this she is not exhibiting any signs or symptoms of withdrawal we'll monitor closely, she does have an elevated MCV will check folate and B12 levels DVT PROPHYLAXIS:Heparin DISPOSITION: Stable for transfer the medical surgical floor VS, I&O, 24H, Fishbone Vital Signs/I&O Vital Signs Date Time Temp Pulse Resp B/P (MAP) Pulse Ox O2 Delivery O2 Flow Rate FiO2 02/08/19 12:00 98.9 66 18 105/51 (69) 97 02/07/19 16:07 Room Air I&O- Last 24 Hours up to 6 AM 02/08/19 06:00 Intake Total 2850 ml Output Total 300 ml Balance 2550 ml Laboratory Data 24H LABS Laboratory Tests 2 02/07/19 16:42: Immature Granulocyte % (Auto) 0.3, White Blood Count 9.0, Red Blood Count 3.95L, Hemoglobin 14.2, Hematocrit 39.3, Mean Corpuscular Volume 99.5H, Mean Corpuscular Hemoglobin 35.9H, Mean Corpuscular Hemoglobin Concent 36.1, Red Cell Distribution Width 11.3L, Platelet Count 392, Neutrophils (%) (Auto) 58.8, Lymphocytes (%) (Auto) 31.3, Monocytes (%) (Auto) 8.2H, Eosinophils (%) (Auto) 0.7, Basophils (%) (Auto) 0.7, Neutrophils # (Auto) 5.3, Lymphocytes # (Auto) 2.8, Monocytes # (Auto) 0.7, Eosinophils # (Auto) 0.1, Basophils # (Auto) 0.1, Nucleated Red Blood Cells % (auto) 0.0, Anion Gap 15, Glomerular Filtration Rate 9.1L, Lactic Acid Level 1.4, Calcium Level 9.7, Magnesium Level 1.9, Aspartate Amino Transf (AST/SGOT) 19, Alanine Aminotransferase (ALT/SGPT) 19, Alkaline Phosphatase 133H, Total Bilirubin 0.6, Direct Bilirubin 0.3H, Total Creatine Kinase 39, Creatine Kinase MB < 1.0, Creatine Kinase MB Relative Index 2.56, Troponin I 0.04, Total Protein 7.4, Albumin 4.5, Albumin/Globulin Ratio 1.55, Amylase Level 90, Lipase 620H 02/07/19 19:32: Magnesium Level 1.8, Thyroid Stimulating Hormone (TSH) 0.623, Ethyl Alcohol Level < 0.003 02/08/19 00:49: Anion Gap 13, Glomerular Filtration Rate 12.3L, Calcium Level 7.9#L, Blood Urea Nitrogen 54H, Creatinine 3.95H, Sodium Level 134L, Potassium Level 3.2L, Chloride Level 107, Carbon Dioxide Level 14L 02/08/19 06:32: Nucleated Red Blood Cells % (auto) 0.0, Anion Gap 13, Glomerular Filtration Rate 14.8L, Calcium Level 8.0L, Triglycerides Level 119, LDL Cholesterol 44, Total Cholesterol 132, Non-HDL Cholesterol (LDL + VLDL) 68, Total HDL Cholesterol 64, Cholesterol/HDL Ratio 2.062 CBC/BMP Laboratory Tests 02/07/19 16:42 Red Blood Count 3.95 L, Mean Corpuscular Volume 99.5 H, Mean Corpuscular Hemoglobin 35.9 H, Mean Corpuscular Hemoglobin Concent 36.1, Red Cell Distribution Width 11.3 L, Neutrophils (%) (Auto) 58.8, Lymphocytes (%) (Auto) 31.3, Monocytes (%) (Auto) 8.2 H, Eosinophils (%) (Auto) 0.7, Basophils (%) (Auto) 0.7, Neutrophils # (Auto) 5.3, Lymphocytes # (Auto) 2.8, Monocytes # (Auto) 0.7, Eosinophils # (Auto) 0.1, Basophils # (Auto) 0.1 02/08/19 00:49 Calcium Level 7.9 #L 02/08/19 06:32 Red Blood Count 3.28 L, Mean Corpuscular Volume 101.2 H, Mean Corpuscular Hemoglobin 35.1 H, Mean Corpuscular Hemoglobin Concent 34.6, Red Cell Distribution Width 11.5 Microbiology Microbiology 02/07/19 Blood Culture, Received Pending 02/07/19 Blood Culture, Received Pending KEVIN STARK MD February 08, 2019 12:50
[2019-02-08] MEDS: LR 1,000 ML IV SCH ×2 (13:05→18:42)
[2019-02-08 14:16] LABS: TOTAL PROTEIN,RANDOM URINE 46.3 MG/DL (0.0-12.0)
[2019-02-08 16:00] VITALS: BP_SYST 100; BP_SYST 102; BP_SYST 96; BP_DIAS 55; BP_DIAS 57; BP_DIAS 58
--- NOTE | 2019-02-08 19:34 | ECGEPIP ---
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
[2019-02-08] MEDS: AZELASTINE 137MCG NASAL SPY 30 ML (ASTELIN) SCH (21:00)
[2019-02-08 22:00] VITALS: BP 100/55
[2019-02-09] VITALS: BP_SYST 115; BP_SYST 119; BP_DIAS 55; BP_DIAS 61; BP_DIAS 64
[2019-02-09] MEDS: LR 1,000 ML IV SCH ×2 (02:00→09:10)
[2019-02-09] MEDS: ONDANSETRON 4MG/2ML VIAL (J2405) IV PRN (02:24)
[2019-02-09 06:00] VITALS: BP 98/58
[2019-02-09 06:12] LABS: HEMATOCRIT 29.9 % (36.0-47.0); HEMOGLOBIN 10.4 g/dl (12.0-15.5); MEAN CORPUSCULAR HEMOGLOBIN 35.7 pg (27.0-33.0); MEAN CORPUSCULAR HGB CONC 34.8 g/dl (32.0-36.5); MEAN CORPUSCULAR VOLUME 102.7 fl (80.0-96.0); PLATELET COUNT, AUTOMATED 285 10^3/uL (150-450); RED BLOOD COUNT 2.91 10^6/uL (4.00-5.40); WHITE BLOOD COUNT 7.2 10^3/uL (4.0-10.0)
[2019-02-09 06:46] LABS: CALCIUM LEVEL 7.9 MG/DL (8.8-10.2); CREATININE FOR GFR 1.49 MG/DL (0.55-1.30); GLOMERULAR FILTRATION RATE 37.9 (>45); POTASSIUM SERUM 3.3 MEQ/L (3.5-5.1)
[2019-02-09 08:00] VITALS: BP_SYST 118; BP_SYST 120; BP_SYST 121; BP_DIAS 61; BP_DIAS 68; BP_DIAS 72
[2019-02-09 08:24] LABS: MAGNESIUM LEVEL 1.3 MG/DL (1.8-2.4)
[2019-02-09] MEDS: AZELASTINE 137MCG NASAL SPY 30 ML (ASTELIN) SCH ×2 (09:00→22:25)
[2019-02-09 09:10] LABS: VITAMIN B12 LEVEL 844 PG/ML
[2019-02-09] MEDS: PANTOPRAZOLE 40MG INJ (PROTONIX) (C9113) IV SCH (09:10)
[2019-02-09] MEDS: HEPARIN SOD (PORCINE) 5000 UNITS/ML VIAL SC SCH ×2 (09:10→22:26)
[2019-02-09 09:13] LABS: FOLATE > 24.0 NG/ML
[2019-02-09] MEDS ORDERED: POTASSIUM CHLORIDE 10 MEQ SR TABLET PO ONE (10:00)
[2019-02-09] MEDS: MAG SULF 1GM/100ML (MAG RUN) 1 GM in APPROPRIATE DILUENT 1 EA IV SCH ×2 (10:02→11:30)
[2019-02-09 14:00] VITALS: BP 92/50
--- NOTE | 2019-02-09 14:46 | IPNPDOC ---
Text Note Date of Service The patient was seen on 02/09/19. NOTE SUBJECTIVE: Ms. Stewart is sitting in her bedside chair enjoying the suns shabana of her room. She states that overnight she did not have any wretching or nausea in the middle of the night and that she felt well. She is still having bouts of loose stool, last one was early this morning, no blood although she states she has had blood only on her toilet paper in the past from internal hemorrhoids, always bright red. Her diarrhea has been present for about three years, usually worse with dairy products, except yogurt. She has no other complaints today. Denies any chest pain, SOB or chills/fevers. ROS: 12 point ROS was reviewed and negative except for what is positive in subjective portion of note OBJECTIVE PHYSICAL EXAMINATION: VITAL SIGNS: Please see below. GENERAL: Pleasant 63 y/o female appearing her stated age, sitting in the sunlight of her room reading a book. NAD. Awake alert oriented speaking in complete sentences HEENT: Moist mucous membranes no JVD appreciated, EOMI CARDIOVASCULAR: S1 S2 regular no additional heart sounds appreciated RESPIRATORY: Clear to auscultation bilaterally without wheezing or rales/crackles ABDOMINAL: nabsx4, no hepatosplenomegaly, no distension, no rebound ridgity or guarding, abdomen is soft and nontender EXTREMITIES: No clubbing cyanosis or edema NEUROLOGICAL: Spontaneously moves all 4 extremities, no focal deficits appreciated PSYCHOLOGICAL: Appropriate affect LABORATORY DATA, MICROBIOLOGY: Please see below. ASSESSMENT & PLAN: This is a 63-year-old female presenting with acute renal failure associated with nausea and queasiness PROBLEMS: 1. Acute renal failure -She did describe days of decreased oral intake prior to ED presentation due to abdominal nausea so likely pre-renal in etiology, however we should perform renal u/s to r/o any obstruction or possible RALPH. Holding lisinopril, she is currently getting IVF with LR. We will monitor her renal function which is improving, creatine today is 1.49 from 3.36. U/A was not revealing for infection, proteinuria or blood. Spot urine protein/cr ratio is half a gram. 2. Hypokalemia and hypomagnesemia -Potassium today is 3.3, will supplement along with magnesium, Likely secondary to dehydration 3. Hypovolemic hyponatremia -Na was 142 today, resolved, secondary to dehydration 4. Diarrhea - Will change diet to restrict dairy products as the patient may have a lactulose intolerance, GI panel negative. She has chronic diarrhea and has been told she has microscopic colitis in the past. We will see how she does with a dietary change. We will also add a probiotic today. 5. Hypotension -BP today 98/58, c/w IVF 6. Hypertension -Her BP is a bit soft, holding lisinopril 7. Dyslipidemia -holding gemfibrozil 8. Elevated lipase - C/w IV fluids and antiemetics. Her CT abdomen is unrevealing for any pancreatic inflammation and she does not have any significant abdominal pain. She is tolerating clear liquids. 9. Seasonal allergies: Hold Flonase patient wishes to avoid using this medication from future. I'll provide her with azelastine for her chronic postnasal drip 10. Tobacco abuse: Cessation counseling provided 11. Alcohol abuse: Patient denies any problems with this she is not exhibiting any signs or symptoms of withdrawal we'll monitor closely, folate and B12 WNL. DVT PROPHYLAXIS:Heparin DISPOSITION: We need to see if she continues to tolerate a diet and can do so with an advanced one, pending also kidney u/s. VS,Fishbone, I+O VS, Fishbone, I+O Laboratory Tests 02/09/19 05:49 Red Blood Count 2.91 L, Mean Corpuscular Volume 102.7 H, Mean Corpuscular Hemoglobin 35.7 H, Mean Corpuscular Hemoglobin Concent 34.8, Red Cell Distribution Width 11.5, Calcium Level 7.9 L Vital Signs Date Time Temp Pulse Resp B/P (MAP) Pulse Ox O2 Delivery O2 Flow Rate FiO2 02/09/19 08:00 75 120/61 (80) 66 118/68 (85) 70 121/72 (88) 02/09/19 06:00 97.3 16 99 02/07/19 16:07 Room Air I&O- Last 24 Hours up to 6 AM 02/09/19 06:00 Intake Total 4225 ml Output Total 1250 ml Balance 2975 ml GME ATTESTATION GME ATTESTATION My faculty preceptor for this patient encounter was physically present during the encounter and was fully available. All aspects of the patient interview, examination, medical decision making process, and medical care plan development were reviewed and approved by the faculty preceptor. The faculty preceptor is aware and concurs with the plan as stated in the body of this note and will attest to such by his/her cosignature. ATTENDING NOTE I saw and evaluated the patient. I agree with the findings and plan of care as documented in the resident's note MAY NARVAEZ DO February 09, 2019 14:46 KEVIN STARK MD February 13, 2019 14:54
[2019-02-09] MEDS: LACTOBACILLUS ACIDOPHILUS CAP (BACID) PO SCH (15:09)
[2019-02-09 22:00] VITALS: BP 104/55
[2019-02-10] MEDS: ONDANSETRON 4MG/2ML VIAL (J2405) IV PRN (02:53)
[2019-02-10 05:49] LABS: HEMATOCRIT 26.9 % (36.0-47.0); HEMOGLOBIN 9.3 g/dl (12.0-15.5); MEAN CORPUSCULAR HEMOGLOBIN 35.2 pg (27.0-33.0); MEAN CORPUSCULAR HGB CONC 34.6 g/dl (32.0-36.5); MEAN CORPUSCULAR VOLUME 101.9 fl (80.0-96.0); PLATELET COUNT, AUTOMATED 246 10^3/uL (150-450); RED BLOOD COUNT 2.64 10^6/uL (4.00-5.40); WHITE BLOOD COUNT 7.1 10^3/uL (4.0-10.0)
[2019-02-10 06:00] VITALS: BP 108/62
[2019-02-10 06:07] LABS: BLOOD UREA NITROGEN 25 MG/DL (7-18); CALCIUM LEVEL 8.1 MG/DL (8.8-10.2); CARBON DIOXIDE LEVEL 20 MEQ/L (21-32); CHLORIDE LEVEL 115 MEQ/L (98-107); CREATININE FOR GFR 0.96 MG/DL (0.55-1.30); GLOMERULAR FILTRATION RATE > 60.0 (>45); GLUCOSE, FASTING 77 MG/DL (70-100); POTASSIUM SERUM 3.1 MEQ/L (3.5-5.1); SODIUM LEVEL 142 MEQ/L (136-145)
[2019-02-10] MEDS ORDERED: POTASSIUM CHLORIDE 10 MEQ SR TABLET PO ONE (07:30)
[2019-02-10] MEDS ORDERED: MAG SULF 1GM/100ML (MAG RUN) 1 GM in APPROPRIATE DILUENT 1 EA IV ONE (07:30)
[2019-02-10] MEDS: LACTOBACILLUS ACIDOPHILUS CAP (BACID) PO SCH (07:52)
[2019-02-10] MEDS: AZELASTINE 137MCG NASAL SPY 30 ML (ASTELIN) SCH ×2 (07:53→20:33)
[2019-02-10] MEDS: HEPARIN SOD (PORCINE) 5000 UNITS/ML VIAL SC SCH ×2 (07:53→20:33)
--- NOTE | 2019-02-10 10:33 | REP ---
RENAL ULTRASOUND WITH DUPLEX DOPPLER RENAL ARTERY EVALUATION: Real-time sonographic evaluation of the kidneys are performed. Kidneys are normal in size and echotexture, right kidney measuring 10.9 x 5.3 x 4.2 cm and left kidney 10.0 x 4.3 x 6.2 cm. There is no hydronephrosis bilaterally. There is mild bulging of the renal cortical contour of the mid left kidney probably representing a dromedary hump. Underlying mass can not be completely excluded. Vascular calcifications are seen bilaterally. Urinary bladder demonstrates no evidence of mass or calculus. Real-time ultrasound evaluation and duplex Doppler interrogation of the renal arteries is performed bilaterally. Peak systolic velocity of the abdominal aorta at the level of the renal artery is 93.5 cm/s. Peak systolic velocity of the main right renal artery at its origin is 103.6 cm/s. Renal to aortic ratio 1.1. Resistive indices right kidney are measured in the upper middle and middle thirds and range between 0.72 and 0.75. Acceleration times range between 0.03 and 0.05. Peak systolic velocity of the main left renal artery is 57.7 cm/s, renal to aortic ratio is 0.62. Resistive indices left kidney range between 0.72 and 0.78. Coloration times ranged between 0.03 and 0.04. IMPRESSION: No hydronephrosis. 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 Underlying mass not completely excluded. Recommend dedicated CT or MRI with contrast when renal function improves. No compelling duplex Doppler or sonographic evidence of significant renal artery stenosis. Electronically Signed by Mason Shultz MD 02/10/2019 11:06 A
[2019-02-10 13:26] LABS: CREATININE,RANDOM URINE 68.6 MG/DL; MAGNESIUM URINE RANDOM 14.7 MG/DL; POTASSIUM RANDOM URINE 6.6 MEQ/L
--- NOTE | 2019-02-10 13:47 | IPNPDOC ---
Text Note Date of Service The patient was seen on 02/10/19. NOTE SUBJECTIVE: Ms. Stewart is sitting in bed today on her cell phone. She has had no diarrhea this morning and states her abdominal discomfort seems improved. She does not have any complaints today.She denies any chest pain, SOB or chills/fevers. ROS: 12 point ROS was reviewed and negative except for what is positive in subjective portion of note OBJECTIVE PHYSICAL EXAMINATION: VITAL SIGNS: Please see below. GENERAL: Pleasant 63 y/o female appearing her stated age, sitting in her bed upright on her cellphone, NAD. Awake alert oriented speaking in complete sentences HEENT: Moist mucous membranes no JVD appreciated, EOMI CARDIOVASCULAR: S1 S2 regular no additional heart sounds appreciated RESPIRATORY: Clear to auscultation bilaterally without wheezing or rales/ crackles ABDOMINAL: nabsx4, no hepatosplenomegaly, no distension, no rebound ridgity or guarding, abdomen is soft and nontender EXTREMITIES: No clubbing cyanosis or edema NEUROLOGICAL: Spontaneously moves all 4 extremities, no focal deficits appreciated PSYCHOLOGICAL: Appropriate affect LABORATORY DATA, MICROBIOLOGY: Please see below. ASSESSMENT & PLAN: This is a 63-year-old female presenting with acute renal failure associated with nausea and queasiness PROBLEMS: 1. Acute renal failure -Resolved today, creatine is now .96. She did describe days of decreased oral intake prior to ED presentation due to abdominal nausea so likely pre-renal in etiology, her renal u/s is pending this morning to r/o any obstruction or possible RALPH. Holding lisinopril, s/p IVF, tolerating diet. U/A was not re vealing for infection, proteinuria or blood. Spot urine protein/cr ratio is half a gram. We will await results of renal u/s. 2. Hypokalemia and hypomagnesemia -Potassium today is 3.1, will supplement along with magnesium and begin magnesium chronic repletion today, Likely secondary to dehydration or ETOH abuse at home 3. Hypovolemic hyponatremia -Na was 142 today, resolved, secondary to dehydration 4. Diarrhea - No diarrhea this AM, c/w probiotic and limited dairy diet. The patient may hav e a lactulose intolerance, GI panel negative. She has chronic diarrhea and has been told she has microscopic colitis in the past. Monitor for now. Afebrile w/o a white count. 5. Hypotension -BP today 105/62 , s/p IVF, stable 6. Hypertension -Her BP is a bit soft actually, holding lisinopril 7. Dyslipidemia -holding gemfibrozil 8. Elevated lipase -s/p IV fluids and antiemetics. Her CT abdomen is unrevealing for any pancreatic inflammation and she does not have any significant abdominal pain. She is tolerating clear liquids and advancing diet. 9. Seasonal allergies: Hold Flonase patient wishes to avoid using this medication from future. I'll provide her with azelastine for her chronic postnasal drip 10. Tobacco abuse: Cessation counseling provided 11. Alcohol abuse: Patient denies any problems with this she is not exhibiting any signs or symptoms of withdrawal we'll monitor closely, folate and B12 WNL. DVT PROPHYLAXIS: Heparin DISPOSITION: We need to see if she continues to tolerate a diet today, pending renal u/s results as well. VS,Fishbone, I+O VS, Fishbone, I+O Laboratory Tests 02/10/19 05:34 Red Blood Count 2.64 L, Mean Corpuscular Volume 101.9 H, Mean Corpuscular Hemoglobin 35.2 H, Mean Corpuscular Hemoglobin Concent 34.6, Red Cell Distribution Width 11.5, Calcium Level 8.1 L Vital Signs Date Time Temp Pulse Resp B/P (MAP) Pulse Ox O2 Delivery O2 Flow Rate FiO2 02/10/19 06:00 99.0 63 16 108/62 (77) 97 02/07/19 16:07 Room Air I&O- Last 24 Hours up to 6 AM 02/10/19 06:00 Intake Total 2180 ml Output Total 2900 ml Balance -720 ml GME ATTESTATION GME ATTESTATION My faculty preceptor for this patient encounter was physically present during the encounter and was fully available. All aspects of the patient interview, examination, medical decision making process, and medical care plan development were reviewed and approved by the faculty preceptor. The faculty preceptor is aware and concurs with the plan as stated in the body of this note and will attest to such by his/her cosignature. ATTENDING NOTE I saw and evaluated the patient. I agree with the findings and plan of care as documented in the resident's note MAY NARVAEZ DO February 10, 2019 13:47 KEVIN STARK MD February 13, 2019 15:49
[2019-02-10 14:00] VITALS: BP 106/54
[2019-02-10] MEDS: MAGNESIUM CHLORIDE 64 MG TABCR (SLO MAG) PO SCH ×2 (16:36→20:33)
[2019-02-10 22:00] VITALS: BP 117/62
[2019-02-11 06:00] VITALS: BP 127/69
[2019-02-11 06:12] LABS: HEMATOCRIT 27.9 % (36.0-47.0); HEMOGLOBIN 9.6 g/dl (12.0-15.5); MEAN CORPUSCULAR HEMOGLOBIN 35.6 pg (27.0-33.0); MEAN CORPUSCULAR HGB CONC 34.4 g/dl (32.0-36.5); MEAN CORPUSCULAR VOLUME 103.3 fl (80.0-96.0); PLATELET COUNT, AUTOMATED 251 10^3/uL (150-450); WHITE BLOOD COUNT 6.5 10^3/uL (4.0-10.0)
[2019-02-11 06:35] LABS: BLOOD UREA NITROGEN 17 MG/DL (7-18); CALCIUM LEVEL 7.9 MG/DL (8.8-10.2); CARBON DIOXIDE LEVEL 25 MEQ/L (21-32); CHLORIDE LEVEL 112 MEQ/L (98-107); CREATININE FOR GFR 0.91 MG/DL (0.55-1.30); GLOMERULAR FILTRATION RATE > 60.0 (>45); GLUCOSE, FASTING 72 MG/DL (70-100); MAGNESIUM LEVEL 1.4 MG/DL (1.8-2.4); POTASSIUM SERUM 3.7 MEQ/L (3.5-5.1); SODIUM LEVEL 142 MEQ/L (136-145)
[2019-02-11] MEDS: MAG SULF 1GM/100ML (MAG RUN) 1 GM in APPROPRIATE DILUENT 1 EA IV SCH ×2 (08:50→09:12)
[2019-02-11] MEDS: LACTOBACILLUS ACIDOPHILUS CAP (BACID) PO SCH (08:51)
[2019-02-11] MEDS: HEPARIN SOD (PORCINE) 5000 UNITS/ML VIAL SC SCH (08:51)
[2019-02-11] MEDS: AZELASTINE 137MCG NASAL SPY 30 ML (ASTELIN) SCH (08:51)
[2019-02-11] MEDS: MAGNESIUM CHLORIDE 64 MG TABCR (SLO MAG) PO SCH (09:00)
[2019-02-11] MEDS ORDERED: RISATAB3 PO (11:28)
[2019-02-11] MEDS ORDERED: MAGN64TASA PO (11:28)
--- NOTE | 2019-02-11 12:26 | IPNPDOC ---
Text Note Date of Service The patient was seen on 02/11/19. NOTE Date of discharge 02/11/2019- discharge notice DISCHARGE DIAGNOSIS: 1. Acute renal failure SECONDARY DIAGNOSIS: 2. Hypokalemia and hypomagnesemia 3. Hypovolemic hyponatremia 4. Diarrhea 5. Hypotension 6. Hypertension 7. Dyslipidemia 8. Elevated lipase 9. Seasonal allergies 10. Tobacco abuse 11. Alcohol abuse PROCEDURES PERFORMED DURING STAY: None CONSULTANTS:None HOSPITAL COURSE: During the course of the patient's hospital stay her abdominal discomfort and nausea and retching improved. It is thought that her acute renal failure was due to severely decreased oral intake due to nausea prior to presentation the ED. She did have elevated lipase, thought to be secondary to hypotension & dehydration. She was made nothing by mouth and treated with IV fluid, her CT abdomen did not reveal any pancreatic inflammation and she did not have significant abdominal pain suggestive of pancreatic inflammation, low suspicion for pancreatitis. She did also complain of chronic diarrhea. She was beginning to have formed stools again after being started on a probiotic and having a lactose limited diet. Magnesium & potassium had been low during this admission and have been supplemented. She is being discharged on magnesium pills. She has an order to have both Mg and Potassium checked in a few days with her PCP, she was made aware of this. CT of abdomen and pelvis did reveal possible enteral colitis. Renal u/s performed could not completely rule out abdominal mass, recommend CT or MRI once kidneys improve a bit more-however kidney function is normal now so she could have this done soon after d/c, we have let patient be aware of these findings and recommendation for abdominal CT or MRI after d/c, she verbalized her understanding of this and had no questions. We have also included this in discharge instructions for PCP. DISCHARGE MEDICATIONS: Please see below. ALLERGIES: Please see below. SUBJECTIVE: She feels well and has no complaints. She denies chest pain, shortness, breath, nausea, vomiting, fevers, chills OBJECTIVE: PHYSICAL EXAMINATION: VITAL SIGNS: Please see below. GENERAL: This is a pleasant 63-year-old female sitting up in bed awake alert oriented speaking in complete sentences no acute distress HEENT: EOMI, moist mucous membranes, no JVD CARDIOVASCULAR: Normal S1 and S2, no murmurs rubs or gallops appreciated RESPIRATORY: Clear to auscultation bilaterally, no rales, rhonchi, wheezing appreciated no crackles ABDOMINAL: Soft, no distention, no pain to palpation, no rebound rigidity or guarding, normal active bowel sounds 4, no hepatosplenomegaly or masses appreciated EXTREMITIES: No clubbing, cyanosis, edema NEUROLOGICAL: No focal neurologic deficits appreciated PSYCHOLOGICAL: Her affect is appropriate LABORATORY DATA, MICROBIOLOGY: Please see below. IMAGING STUDIES: Chest x-ray performed 02/07/2019 showed No acute cardiopulmonary process CT abdomen and pelvis performed 02/07/2019 showed Impression: 1. Fluid-filled loops of small large bowel may reflect enterocolitis and should be correlated clinically. 2. No further acute abdominopelvic pathology appreciated. Head CT performed 02/07/2019 showed: Impression: Age related atrophy and microvascular ischemic changes. No acute intracranial hemorrhage, infarction, or mass/mass effect. Renal ultrasound 02/10/2019 showed IMPRESSION: No hydronephrosis. 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 Underlying mass not completely excluded. Recommend dedicated CT or MRI with contrast when renal function improves. No compelling duplex Doppler or sonographic evidence of significant renal artery stenosis. ASSESSMENT AND PLAN: This is a 63-year-old female who came to the emergency department for onset of nausea and retching and was found to be in acute renal f ailure. PROBLEMS: 1. Acute renal failure 2. Hypokalemia and hypo-magnesium 3. Chronic diarrhea 4. Hypertension 5. Dyslipidemia DISPOSITION: Stable, favorable DISCHARGE CONDITION: Improved and stable [PROGNOSIS]: Favorable FOLLOW UP: The patient is follow-up with primary care doctor within a few days to check her potassium and magnesium again, we have scrips written for these that we are giving to the patient, she also has follow-up appointment already made with the PCP for next week at which she is aware of. She was made aware of the renal ultrasound findings of questionable abdominal mass that needs CT or MRI of abdomen done soon after discharge, we have also printed this out on the instruction discharge sheet to PCP. She was asked to hold her lisinopril for the time being since she did not need it on her admission she was not hypertensive. The patient verbalized her understanding of the above and had no questions ACTIVITY: As prior to admission DIET: As prior to admission TIME SPENT ON DISCHARGE: 40 min VS,Fishbone, I+O VS, Fishbone, I+O Laboratory Tests 02/11/19 05:44 Red Blood Count 2.70 L, Mean Corpuscular Volume 103.3 H, Mean Corpuscular Hemoglobin 35.6 H, Mean Corpuscular Hemoglobin Concent 34.4, Red Cell Distribution Width 11.6, Calcium Level 7.9 L Vital Signs Date Time Temp Pulse Resp B/P (MAP) Pulse Ox O2 Delivery O2 Flow Rate FiO2 02/11/19 06:00 96.7 58 18 127/69 (88) 100 02/07/19 16:07 Room Air I&O- Last 24 Hours up to 6 AM 02/11/19 06:00 Intake Total 1710 ml Output Total 2300 ml Balance -590 ml GME ATTESTATION GME ATTESTATION My faculty preceptor for this patient encounter was physically present during the encounter and was fully available. All aspects of the patient interview, examination, medical decision making process, and medical care plan development were reviewed and approved by the faculty preceptor. The faculty preceptor is aware and concurs with the plan as stated in the body of this note and will attest to such by his/her cosignature. MAY NARVAEZ DO February 11, 2019 12:26
--- NOTE | 2019-02-12 11:50 | DS.PDOC ---
Discharge Summary General Date of Admission February 07, 2019 at 18:36 Date of Discharge feb 11 2019 Discharge Summary Date of discharge 02/11/2019- discharge notice DISCHARGE DIAGNOSIS: 1. Acute renal failure SECONDARY DIAGNOSIS: 2. Hypokalemia and hypomagnesemia 3. Hypovolemic hyponatremia 4. Diarrhea 5. Hypotension 6. Hypertension 7. Dyslipidemia 8. Elevated lipase 9. Seasonal allergies 10. Tobacco abuse 11. Alcohol abuse PROCEDURES PERFORMED DURING STAY: None CONSULTANTS:None HOSPITAL COURSE: During the course of the patient's hospital stay her abdominal discomfort and nausea and retching improved. It is thought that her acute renal failure was due to severely decreased oral intake due to nausea prior to presentation the ED. She did have elevated lipase, thought to be secondary to hypotension & dehydration. She was made nothing by mouth and treated with IV fluid, her CT abdomen did not reveal any pancreatic inflammation and she did not have significant abdominal pain suggestive of pancreatic inflammation, low suspicion for pancreatitis. She did also complain of chronic diarrhea. She was beginning to have formed stools again after being started on a probiotic and having a lactose limited diet. Magnesium & potassium had been low during this admission and have been supplemented. She is being discharged on magnesium pills. She has an order to have both Mg and Potassium checked in a few days with her PCP, she was made aware of this. CT of abdomen and pelvis did reveal possible enteral colitis. Renal u/s performed could not completely rule out abdominal mass, recommend CT or MRI once kidneys improve a bit more-however kidney function is normal now so she could have this done soon after d/c, we have let patient be aware of these findings and recommendation for abdominal CT or MRI after d/c, she verbalized her understanding of this and had no questions. We have also included this in discharge instructions for PCP. DISCHARGE MEDICATIONS: Please see below. ALLERGIES: Please see below. SUBJECTIVE: She feels well and has no complaints. She denies chest pain, shortness, breath, nausea, vomiting, fevers, chills OBJECTIVE: PHYSICAL EXAMINATION: VITAL SIGNS: Please see below. GENERAL: This is a pleasant 63-year-old female sitting up in bed awake alert oriented speaking in complete sentences no acute distress HEENT: EOMI, moist mucous membranes, no JVD CARDIOVASCULAR: Normal S1 and S2, no murmurs rubs or gallops appreciated RESPIRATORY: Clear to auscultation bilaterally, no rales, rhonchi, wheezing appreciated no crackles ABDOMINAL: Soft, no distention, no pain to palpation, no rebound rigidity or guarding, normal active bowel sounds 4, no hepatosplenomegaly or masses a ppreciated EXTREMITIES: No clubbing, cyanosis, edema NEUROLOGICAL: No focal neurologic deficits appreciated PSYCHOLOGICAL: Her affect is appropriate LABORATORY DATA, MICROBIOLOGY: Please see below. IMAGING STUDIES: Chest x-ray performed 02/07/2019 showed No acute cardiopulmonary process CT abdomen and pelvis performed 02/07/2019 showed Impression: 1. Fluid-filled loops of small large bowel may reflect enterocolitis and should be correlated clinically. 2. No further acute abdominopelvic pathology appreciated. Head CT performed 02/07/2019 showed: Impression: Age related atrophy and microvascular ischemic changes. No acute intracranial hemorrhage, infarction, or mass/mass effect. Renal ultrasound 02/10/2019 showed IMPRESSION: No hydronephrosis. 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 Underlying mass not completely excluded. Recommend dedicated CT or MRI with contrast when renal function improves. No compelling duplex Doppler or sonographic evidence of significant renal artery stenosis. ASSESSMENT AND PLAN: This is a 63-year-old female who came to the emergency department for onset of nausea and retching and was found to be in acute renal failure. PROBLEMS: 1. Acute renal failure 2. Hypokalemia and hypo-magnesium 3. Chronic diarrhea 4. Hypertension 5. Dyslipidemia DISPOSITION: Stable, favorable DISCHARGE CONDITION: Improved and stable [PROGNOSIS]: Favorable FOLLOW UP: The patient is follow-up with primary care doctor within a few days to check her potassium and magnesium again, we have scrips written for these that we are giving to the patient, she also has follow-up appointment already made with the PCP for next week at which she is aware of. She was made aware of the renal ultrasound findings of questionable abdominal mass that needs CT or MRI of abdomen done soon after discharge, we have also printed this out on the instruction discharge sheet to PCP. She was asked to hold her lisinopril for the time being since she did not need it on her admission she was not hypertensive. The patient verbalized her understanding of the above and had no questions ACTIVITY: As prior to admission DIET: As prior to admission TIME SPENT ON DISCHARGE: 40 min Vital Signs/I&Os Vital Signs Date Time Temp Pulse Resp B/P (MAP) Pulse Ox O2 Delivery O2 Flow Rate FiO2 5/29/19 06:00 96.7 58 18 127/69 (88) 100 02/07/19 16:07 Room Air I&O- Last 24 Hours up to 6 AM 02/12/19 06:00 Intake Total 200 ml Output Total 850 ml Balance -650 ml Microbiology Microbiology 02/07/19 Blood Culture - Preliminary, Resulted No Growth after 72 hours. All specime... 02/07/19 Blood Culture - Preliminary, Resulted No Growth after 72 hours. All specime... 02/08/19 Gastrointestinal Tract Panel (PCR) - Final, Complete Discharge Medications Scheduled Aspirin (Aspirin EC) 81 Mg Tab, 81 MG PO DAILY, (Reported) Gemfibrozil (Gemfibrozil) 600 Mg Tablet, 600 MG PO DAILY, (Reported) L.acidoph/L.bulg/B.bif/S.therm (Mahogany-Bid Caplet) 1 Each Tablet, 1 EA PO DAILY Magnesium Chloride (Mag64) 64 Mg Tablet.dr, 64 MG PO TID Multivitamins (Thera M Plus Tablet) 1 Tab Tab, 1 TAB PO DAILY, (Reported) Allergies Coded Allergies: No Known Allergies (Unverified , 04/05/17) GME ATTESTATION GME ATTESTATION My faculty preceptor for this patient encounter was physically present during the encounter and was fully available. All aspects of the patient interview, examination, medical decision making process, and medical care plan development were reviewed and approved by the faculty preceptor. The faculty preceptor is aware and concurs with the plan as stated in the body of this note and will attest to such by his/her cosignature. MAY NARVAEZ DO February 12, 2019 11:50
== END 2019-02-11 15:51 | disposition home or self-care (01) | DRG 469 ==
LOC: M ED 16:07 → M ED INP 18:36 → M MSPAV 02-08 15:59
PROVIDERS: ADMIT Internal Medicine; ATTEND Internal Medicine
DX: N17.9 Acute kidney failure, unspecified (principal); E87.1 Hypo-osmolality and hyponatremia; I95.9 Hypotension, unspecified; E83.42 Hypomagnesemia; E87.6 Hypokalemia; F17.200 Nicotine dependence, unspecified, uncomplicated; F10.10 Alcohol abuse, uncomplicated; R19.7 Diarrhea, unspecified; I10 Essential (primary) hypertension; Z79.82 Long term (current) use of aspirin; Z79.899 Other long term (current) drug therapy; E78.5 Hyperlipidemia, unspecified; Z86.73 Personal history of transient ischemic attack (TIA), and cerebral infarction without residual deficits

== ENCOUNTER → 2019-02-16 | Outpatient (CLI) | payer OTHER ==
[~2019-02-16] MED LIST changes: +GEMF600T5 PO; +MAGN64TASA PO; +RISATAB3 PO
[2019-02-16 07:40] LABS: BASO # 0.1 10^3/uL (0.0-0.2); BASO % 0.9 % (0.0-1.0); EOS # 0.2 10^3/uL (0.0-0.50); EOS % 2.5 % (0.0-3.0); HEMATOCRIT 31.8 % (36.0-47.0); HEMOGLOBIN 10.8 g/dl (12.0-15.5); LYMPH # 2.6 10^3/uL (1.5-4.5); MEAN CORPUSCULAR HEMOGLOBIN 36.2 pg (27.0-33.0); MEAN CORPUSCULAR VOLUME 106.7 fl (80.0-96.0); MONO # 0.6 10^3/uL (0.0-0.8); MONO % 7.5 % (0.0-5.0); NEUTROPHILS # 4.2 10^3/uL (1.8-7.7); PLATELET COUNT, AUTOMATED 342 10^3/uL (150-450); RED BLOOD COUNT 2.98 10^6/uL (4.00-5.40); WHITE BLOOD COUNT 7.6 10^3/uL (4.0-10.0)
[2019-02-16 08:13] LABS: ALBUMIN 3.3 GM/DL (3.2-5.2); ALT/SGPT 16 U/L (12-78); BILIRUBIN,TOTAL 0.2 MG/DL (0.2-1.0); BLOOD UREA NITROGEN 10 MG/DL (7-18); CALCIUM LEVEL 9.1 MG/DL (8.8-10.2); CARBON DIOXIDE LEVEL 30 MEQ/L (21-32); CHLORIDE LEVEL 106 MEQ/L (98-107); CHOLESTEROL LEVEL 160 MG/DL (<200); CHOLESTEROL RISK RATIO 2.285 (<5); CREATININE FOR GFR 0.76 MG/DL (0.55-1.30); GLOMERULAR FILTRATION RATE > 60.0 (>45); GLUCOSE, FASTING 85 MG/DL (70-100); HDL CHOLESTEROL 70 MG/DL (>40); LDL CHOLESTEROL 75 MG/DL (<100); NON-HDL-C 90 MG/DL; POTASSIUM SERUM 4.1 MEQ/L (3.5-5.1); SODIUM LEVEL 143 MEQ/L (136-145); TOTAL PROTEIN 5.8 GM/DL (6.4-8.2); TRIGLYCERIDES LEVEL 74 MG/DL (<150)
== END ==
LOC: M LAB 06:39
PROVIDERS: ATTEND Physician Assistant Medical
DX: I10 Essential (primary) hypertension (principal)

== ENCOUNTER → 2019-02-16 | Outpatient (CLI) | payer OTHER ==
[2019-02-16 15:51] LABS: BLOOD UREA NITROGEN 11 MG/DL (7-18); CALCIUM LEVEL 9.1 MG/DL (8.8-10.2); CARBON DIOXIDE LEVEL 30 MEQ/L (21-32); CHLORIDE LEVEL 105 MEQ/L (98-107); CREATININE FOR GFR 0.86 MG/DL (0.55-1.30); GLOMERULAR FILTRATION RATE > 60.0 (>45); GLUCOSE, FASTING 77 MG/DL (70-100); MAGNESIUM LEVEL 1.6 MG/DL (1.8-2.4); POTASSIUM SERUM 3.5 MEQ/L (3.5-5.1); SODIUM LEVEL 142 MEQ/L (136-145)
== END ==
LOC: M LAB 14:54
PROVIDERS: ATTEND Internal Medicine
DX: E83.42 Hypomagnesemia (principal); E87.6 Hypokalemia

== ENCOUNTER → 2019-02-17 | Outpatient (CLI) | payer OTHER ==
[2019-02-17 16:56] LABS: ALBUMIN 3.4 GM/DL (3.2-5.2); ALT/SGPT 18 U/L (12-78); BILIRUBIN,TOTAL 0.2 MG/DL (0.2-1.0); BLOOD UREA NITROGEN 9 MG/DL (7-18); CALCIUM LEVEL 9.1 MG/DL (8.8-10.2); CARBON DIOXIDE LEVEL 31 MEQ/L (21-32); CHLORIDE LEVEL 105 MEQ/L (98-107); CREATININE FOR GFR 0.84 MG/DL (0.55-1.30); GLOMERULAR FILTRATION RATE > 60.0 (>45); GLUCOSE, FASTING 68 MG/DL (70-100); MAGNESIUM LEVEL 1.8 MG/DL (1.8-2.4); POTASSIUM SERUM 3.8 MEQ/L (3.5-5.1); SODIUM LEVEL 141 MEQ/L (136-145); TOTAL PROTEIN 6.1 GM/DL (6.4-8.2)
== END ==
LOC: M LAB 15:10
PROVIDERS: ATTEND Physician Assistant
DX: K52.3 Indeterminate colitis (principal)

== ENCOUNTER → 2019-03-06 | Outpatient (CLI) | payer OTHER ==
[2019-03-06 14:04] LABS: BLOOD UREA NITROGEN 14 MG/DL (7-18); CALCIUM LEVEL 10.2 MG/DL (8.8-10.2); CARBON DIOXIDE LEVEL 29 MEQ/L (21-32); CHLORIDE LEVEL 105 MEQ/L (98-107); CREATININE FOR GFR 0.95 MG/DL (0.55-1.30); GLOMERULAR FILTRATION RATE > 60.0 (>45); GLUCOSE, FASTING 103 MG/DL (70-100); MAGNESIUM LEVEL 2.2 MG/DL (1.8-2.4); POTASSIUM SERUM 4.8 MEQ/L (3.5-5.1); SODIUM LEVEL 141 MEQ/L (136-145)
== END ==
LOC: M LAB 12:38
PROVIDERS: ATTEND Physician Assistant Medical
DX: E83.42 Hypomagnesemia (principal); E87.6 Hypokalemia

== ENCOUNTER → 2019-07-13 | Outpatient (CLI) | payer OTHER ==
[2019-07-13 12:30] LABS: BLOOD UREA NITROGEN 11 MG/DL (7-18); CREATININE FOR GFR 0.82 MG/DL (0.55-1.30); GLOMERULAR FILTRATION RATE > 60.0 (>45)
== END ==
LOC: M LAB 11:27
PROVIDERS: ATTEND Physician Assistant
DX: Z01.812 Encounter for preprocedural laboratory examination (principal)

== ENCOUNTER → 2019-07-21 | Outpatient (CLI) | payer OTHER ==
[~2019-07-21] MED LIST changes: +GASTROGRAFIN SOLUTION 30ML (Q9963) As Ordered ONE; +ISOVUE-370 76% 100ML VIAL (Q9967) As Ordered ONE
--- NOTE | 2019-07-22 07:13 | REP ---
Clinical: Possible left renal mass. Technique: Axial contrast enhanced images of the abdomen using oral (per protocol) and 100 ml Isovue 370 intravenous contrast. Delayed images of the abdomen obtained. Coronal and sagittal re-formations obtained. Findings: The bilateral kidneys are normal in appearance and there is no evidence for mass lesion. Ultrasound findings most compatible with dromedary hump. Visualized liver, spleen, pancreas, gallbladder, and bilateral adrenal glands are normal. Visualized enteric system is normal. Abdominal aorta demonstrates atherosclerotic changes without aneurysm. Musculoskeletal structures without focal osseous abnormality. Impression: Normal contrast enhanced CT of the abdomen. Left renal findings on ultrasound corresponds to normal dromedary hump. Electronically Signed by Elmer Acosta MD 07/22/2019 07:04 A
== END ==
LOC: M RAD 08:47
PROVIDERS: ATTEND Physician Assistant
DX: R93.41 Abnormal radiologic findings on diagnostic imaging of renal pelvis, ureter, or bladder (principal)
CPT/HCPCS: 74160; Q9963; Q9967

== ENCOUNTER 2019-08-08 17:36 | Emergency (ER) | payer OTHER ==
[~2019-08-08] VITALS: Ht 167.6 cm; Wt 59.9 kg
[~2019-08-08 17:36] MED LIST changes: -GASTROGRAFIN SOLUTION 30ML (Q9963) As Ordered ONE; -ISOVUE-370 76% 100ML VIAL (Q9967) As Ordered ONE
[2019-08-08 17:37] VITALS: BP 144/75
[2019-08-08] MEDS ORDERED: CENT1TAB PO (17:51)
[2019-08-08] MEDS ORDERED: SULF500T2 PO (17:51)
[2019-08-08] MEDS ORDERED: FOLI0.4T2 PO (17:51)
[2019-08-08] MEDS ORDERED: CVS5000S2 SL (17:51)
[2019-08-08] MEDS ORDERED: AMLO5TAB6 PO (17:51)
[2019-08-08] MEDS ORDERED: ONDANSETRON 4 MG ORAL DISINTEGRATING TAB (Q0162 PER 1MG) PO ONE (18:00)
[2019-08-08 18:14] LABS: BASO % 0.5 % (0.0-1.0); EOS # 0.4 10^3/uL (0.0-0.5); HEMATOCRIT 40.8 % (36.0-47.0); HEMOGLOBIN 13.5 g/dl (12.0-15.5); LYMPH # 0.8 10^3/uL (1.5-5.0); LYMPH % 9.2 % (24.0-44.0); MEAN CORPUSCULAR HEMOGLOBIN 33.8 pg (27.0-33.0); MEAN CORPUSCULAR HGB CONC 33.1 g/dl (32.0-36.5); MEAN CORPUSCULAR VOLUME 102.3 fl (80.0-96.0); MONO # 0.5 10^3/uL (0.0-0.8); MONO % 5.6 % (0.0-5.0); NEUTROPHILS # 6.7 10^3/uL (1.5-8.5); NEUTROPHILS % 79.5 % (36.0-66.0); PLATELET COUNT, AUTOMATED 277 10^3/uL (150-450); RED BLOOD COUNT 3.99 10^6/uL (4.00-5.40); WHITE BLOOD COUNT 8.5 10^3/uL (4.0-10.0)
[2019-08-08 18:47] LABS: ALBUMIN 3.9 GM/DL (3.2-5.2); BILIRUBIN,DIRECT 0.1 MG/DL (0.0-0.2); BILIRUBIN,TOTAL 0.4 MG/DL (0.2-1.0); CALCIUM LEVEL 9.3 MG/DL (8.8-10.2); CREATININE FOR GFR 1.05 MG/DL (0.55-1.30); FREE T4 1.31 NG/DL (0.76-1.46); GLOMERULAR FILTRATION RATE 56.5 (>45); POTASSIUM SERUM 3.2 MEQ/L (3.5-5.1); THYROID STIMULATING HORMONE 0.975 uIU/ML (0.358-3.740); TOTAL PROTEIN 7.2 GM/DL (6.4-8.2)
[2019-08-08] MEDS ORDERED: ONDA4TAB6 PO (19:39)
== END 2019-08-08 20:01 | disposition home or self-care (01) ==
LOC: M ED 17:36
DX: R11.2 Nausea with vomiting, unspecified (principal); K52.9 Noninfective gastroenteritis and colitis, unspecified; Z85.828 Personal history of other malignant neoplasm of skin; Z86.73 Personal history of transient ischemic attack (TIA), and cerebral infarction without residual deficits; I10 Essential (primary) hypertension; R42 Dizziness and giddiness; Z87.01 Personal history of pneumonia (recurrent); Z87.19 Personal history of other diseases of the digestive system; Z87.440 Personal history of urinary (tract) infections; F32.9 Major depressive disorder, single episode, unspecified; F17.200 Nicotine dependence, unspecified, uncomplicated; Z79.82 Long term (current) use of aspirin; Z79.899 Other long term (current) drug therapy
CPT/HCPCS: 80048; 80076; 81001; 82150; 83690; 84439; 84443; 85025; 87086; 99283; Q0162

== ENCOUNTER → 2020-02-11 | Outpatient (CLI) | payer OTHER ==
[~2020-02-11] MED LIST changes: +AMLO5TAB6 PO; +CENT1TAB PO; +CVS5000S2 SL; +FOLI0.4T2 PO; -MECL-68 PO; +MECL1TAB31 PO; +ONDA4TAB6 PO; +SULF500T2 PO
[2020-02-11 12:34] LABS: BASO # 0.1 10^3/uL (0.0-0.2); BASO % 0.9 % (0.0-1.0); HEMATOCRIT 41.6 % (36.0-47.0); HEMOGLOBIN 14.1 g/dl (12.0-15.5); LYMPH # 2.1 10^3/uL (1.5-5.0); LYMPH % 35.9 % (24.0-44.0); MEAN CORPUSCULAR HEMOGLOBIN 34.5 pg (27.0-33.0); MEAN CORPUSCULAR HGB CONC 33.9 g/dl (32.0-36.5); MEAN CORPUSCULAR VOLUME 101.7 fl (80.0-96.0); MONO # 0.5 10^3/uL (0.0-0.8); MONO % 8.9 % (0.0-5.0); NEUTROPHILS # 3.2 10^3/uL (1.5-8.5); PLATELET COUNT, AUTOMATED 331 10^3/uL (150-450); RED BLOOD COUNT 4.09 10^6/uL (4.00-5.40); WHITE BLOOD COUNT 5.9 10^3/uL (4.0-10.0)
[2020-02-11 12:38] LABS: ALBUMIN 4.2 GM/DL (3.2-5.2); BILIRUBIN,TOTAL 0.5 MG/DL (0.2-1.0); CALCIUM LEVEL 9.9 MG/DL (8.8-10.2); CHOLESTEROL RISK RATIO 2.245 (<5); GLOMERULAR FILTRATION RATE 59.8 (>45); TOTAL PROTEIN 7.6 GM/DL (6.4-8.2)
== END ==
LOC: M LAB 11:23
PROVIDERS: ATTEND Physician Assistant
DX: I10 Essential (primary) hypertension (principal); K52.838 Other microscopic colitis

== ENCOUNTER → 2021-04-05 | Outpatient (CLI) | payer OTHER ==
[~2021-04-05] MED LIST changes: +AMLO1TAB24 PO; -AMLO5TAB6 PO; +ASPI-569 PO; -ASPI81TAEC PO; -FOLI0.4T2 PO; +FOLI400T5 PO; -LISI-542 PO; +LISI-898 PO
--- NOTE | 2021-04-05 12:30 | REP ---
INDICATION: NICOTINE DEPEND- LABS AFTER. COMPARISON: Comparison chest x-ray February 07, 2019.. TECHNIQUE: Dose reduction was performed utilizing CARE dose with automated adjustment of the kV and MAS according to patient size; iterative reconstruction, automated exposure control, as well as adaptive dose shielding. Helical scanning is acquired and 3 mm axial images are re-formatted at lung windows. 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 Is mild tortuosity of the thoracic aorta is seen. On axial CT images there is minimal emphysematous change in the lung apices bilaterally. There is a 3 mm nodular density in the left lung apex, page 01/03/1999 in series 201 of today's study. There is a tiny 2-3 mm nodule in the region of the minor fissure. This appears to be a perifissural nodule. This is projected on page 42 of 99. No other visible pulmonary nodule is seen. No lung mass or infiltrate is seen. No endobronchial abnormality. Vascular calcification is observed. The study is otherwise unremarkable. IMPRESSION: Lung RADS category 2 findings. Repeat screening study recommended in 1 year. <Electronically signed by Marvin Su > 04/05/21 2162
[2021-04-05 12:45] LABS: ALBUMIN 4.1 GM/DL (3.2-5.2); BILIRUBIN,TOTAL 0.6 MG/DL (0.2-1.0); CALCIUM LEVEL 9.4 MG/DL (8.8-10.2); CHOLESTEROL RISK RATIO 2.07 (<5); CREATININE FOR GFR 1.05 MG/DL (0.55-1.30); FREE T4 0.99 NG/DL (0.76-1.46); GLOMERULAR FILTRATION RATE 56.2 (>45); POTASSIUM SERUM 3.8 MEQ/L (3.5-5.1); THYROID STIMULATING HORMONE 0.83 uIU/ML (0.358-3.740); TOTAL PROTEIN 7.1 GM/DL (6.4-8.2)
== END ==
LOC: M RAD 10:58
PROVIDERS: ATTEND Nurse Practitioner Family
DX: Z12.2 Encounter for screening for malignant neoplasm of respiratory organs (principal); F17.210 Nicotine dependence, cigarettes, uncomplicated; J43.9 Emphysema, unspecified; I10 Essential (primary) hypertension

== ENCOUNTER → 2021-08-30 | Outpatient (CLI) | payer OTHER ==
--- NOTE | 2021-08-30 15:05 | REPMRS ---
Patient History The patient states she has not had a clinical breast exam in over a year. Family history of pancreatic cancer at age 61 in mother. No breast complaints today Patient signed the MRS sheet 1st vaccine 11/21/2025-Zzwdedi-ojlm arm 2nd vaccine 12/19/20-left arm 3rd vaccine 08/25/21-right arm Patient Identification Verified Priors on PACS Digital Woman Screen Mammo: August 30, 2021 - Exam #: [id number] Bilateral CC and MLO view(s) were taken. Technologist: Wendy Shoemaker, Technologist Prior study comparison: June 03, 2018, bilateral digital woman screen mammo performed at [facility]. 2015, bilateral digital mammo screening bilat, performed at [facility]. FINDINGS: The breast tissue is heterogeneously dense. This may lower the sensitivity of mammography. Screening. Digital screening (2D) mammography was performed bilaterally in the CC and MLO projections. Additionally, breast tomosynthesis (3D mammography) was performed bilaterally in the CC and MLO projections. Todays exam was compared to the prior exam/exams. By history, the patient has no complaints of a palpable breast abnormality or other significant breast complaints. The breasts are unchanged in size and shape.Once again, dense heterogenous fibroglandular elements are seen bilaterally in a stable appearing pattern but to such a degree that the sensitivity of the mammogram in detecting cancer is decreased.There are no jaguar-soft tissue densities or spiculated masses. There is no internal architectural distortion. Once again, stable benign appearing calcifications are seen.There are no suspicious jaguar-calcific clusters. Skin thickening or nipple retraction is not present. IMPRESSION: BI-RADS Category 2- Benign Findings. There is no evidence of malignant alteration of the breasts. Followup examination recommended in one year. The Volpara volumetric breast density category is C, the breasts are heterogenously dense which may obscure small masses. This mammogram was read with the assistance of Fab,an FDA approved computer aided detection system for mammography. The lifetime Tyrer-Cuzick score is 6.3 % Due to the density of the breasts or Tyrer Cuzick score of 20% or greater, MRI/whole breast screening ultrasound is warranted. Negative x-ray reports should not delay surgical consultation if a dominant or clinically suspicious mass is present. Not all breast cancers can be identified by mammography. Therefore, we recommend that you continue to perform regular breast self-examination and physical examination and then promptly contact your physician of any concerns or changes. Adenosis and dense breasts may obscure an underlying neoplasm. Assessment: BI-RADS/ACR category 2 mammogram. Benign Findings. Recommendation Routine screening mammogram of both breasts in 1 year. Electronically Signed By: Lon Johnson DO 08/30/21 [id number]
== END ==
LOC: M WHC 10:44
PROVIDERS: ATTEND Family Medicine
DX: Z12.31 Encounter for screening mammogram for malignant neoplasm of breast (principal); R92.2 Inconclusive mammogram

== ENCOUNTER → 2022-03-27 | Outpatient (CLI) | payer OTHER, MEDICARE ==
[~2022-03-27] MED LIST changes: -LISI-898 PO; +LISI5TAB11 PO
[2022-03-27 10:35] LABS: ALBUMIN 3.9 GM/DL (3.2-5.2); BILIRUBIN,TOTAL 0.6 MG/DL (0.2-1.0); CHOLESTEROL RISK RATIO 2.046 (<5); CREATININE FOR GFR 1.58 MG/DL (0.55-1.30); GLOMERULAR FILTRATION RATE 34.9 (>45); POTASSIUM SERUM 3.7 MEQ/L (3.5-5.1); TOTAL PROTEIN 7.2 GM/DL (6.4-8.2)
== END ==
LOC: M LAB 08:27
PROVIDERS: ATTEND Nurse Practitioner Family
DX: I10 Essential (primary) hypertension (principal)

== ENCOUNTER → 2022-04-25 | Outpatient (CLI) | payer MEDICARE, OTHER ==
[2022-04-25 09:41] LABS: ALBUMIN 3.6 GM/DL (3.2-5.2); BILIRUBIN,TOTAL 0.5 MG/DL (0.2-1.0); CALCIUM LEVEL 9.3 MG/DL (8.8-10.2); CREATININE FOR GFR 1.1 MG/DL (0.55-1.30); FREE T4 1.24 NG/DL (0.76-1.46); GLOMERULAR FILTRATION RATE 53.1 (>45); POTASSIUM SERUM 3.8 MEQ/L (3.5-5.1); THYROID STIMULATING HORMONE 1.29 uIU/ML (0.358-3.740)
== END ==
LOC: M LAB 08:07
PROVIDERS: ATTEND Nurse Practitioner Family
DX: R94.4 Abnormal results of kidney function studies (principal); R63.5 Abnormal weight gain

== ENCOUNTER → 2022-05-09 | Outpatient (CLI) | payer MEDICARE, OTHER ==
[2022-05-09 09:31] LABS: ALBUMIN 3.7 GM/DL (3.2-5.2); BILIRUBIN,DIRECT 0.3 MG/DL (0.0-0.2); BILIRUBIN,TOTAL 0.6 MG/DL (0.2-1.0); TOTAL PROTEIN 6.8 GM/DL (6.4-8.2)
== END ==
LOC: M RAD 07:58
PROVIDERS: ATTEND Internal Medicine Gastroenterology
DX: R74.8 Abnormal levels of other serum enzymes (principal); Z86.010 Personal history of colon polyps; K52.839 Microscopic colitis, unspecified

== ENCOUNTER → 2022-05-09 | Outpatient (CLI) | payer MEDICARE, OTHER | LOC: M RAD 07:57 | PROVIDERS: ATTEND Family Medicine | DX: Z12.2 Encounter for screening for malignant neoplasm of respiratory organs (principal); Z87.891 Personal history of nicotine dependence; J98.4 Other disorders of lung; R91.1 Solitary pulmonary nodule; R74.8 Abnormal levels of other serum enzymes; Z86.010 Personal history of colon polyps; K52.839 Microscopic colitis, unspecified ==

== ENCOUNTER 2022-09-03 12:35 | Emergency (ER) | payer MEDICARE, OTHER ==
[~2022-09-03] VITALS: Ht 170.2 cm; Wt 65.9 kg
[2022-09-03 15:39] LABS: BASO % 0.5 % (0.0-1.0); EOS % 0.3 % (0.0-3.0); HEMATOCRIT 36.6 % (36.0-47.0); HEMOGLOBIN 12.1 g/dl (12.0-15.5); LYMPH % 12.6 % (24.0-44.0); MEAN CORPUSCULAR HEMOGLOBIN 34.5 pg (27.0-33.0); MEAN CORPUSCULAR HGB CONC 33.1 g/dl (32.0-36.5); MEAN CORPUSCULAR VOLUME 104.3 fl (80.0-96.0); MONO # 0.6 10^3/uL (0.0-0.8); MONO % 7.1 % (2.0-8.0); NEUTROPHILS # 6.3 10^3/uL (1.5-8.5); NEUTROPHILS % 79.2 % (36.0-66.0); PLATELET COUNT, AUTOMATED 298 10^3/uL (150-450); RED BLOOD COUNT 3.51 10^6/uL (4.00-5.40); WHITE BLOOD COUNT 7.9 10^3/uL (4.0-10.0)
[2022-09-03] MEDS ORDERED: NS 1,000 ML IV ONE (16:40)
[2022-09-03 17:09] LABS: APPEARANCE, URINE MANUAL HAZY (CLEAR); COLOR, URINE MANUAL YELLOW (YELLOW)
[2022-09-03 17:11] LABS: BILIRUBIN, URINE MANUAL NEGATIVE (NEGATIVE); BLOOD URINE MANUAL NEGATIVE (NEGATIVE); GLUCOSE, URINE (UA) MANUAL NEGATIVE (NEGATIVE); KETONE, URINE MANUAL NEGATIVE (NEGATIVE); LEUKOCYTE ESTERASE, URINE MAN POSITIVE (NEGATIVE); NITRITE, URINE MANUAL NEGATIVE (NEGATIVE); PROTEIN, URINE MANUAL 1+ mg/dL (NEGATIVE); UROBILINOGEN, URINE MANUAL NORMAL (NORMAL)
[2022-09-03 17:25] LABS: INR 0.91; PROTHROMBIN TIME 12.5 SECONDS (12.5-14.5)
[2022-09-03 17:28] LABS: CK-MB VALUE MASS 1.2 NG/ML (<3.6); ETHYL ALCOHOL (ETHANOL) 0.003 % (0.000-0.010); MAGNESIUM LEVEL 1.7 MG/DL (1.8-2.4)
[2022-09-03 17:29] LABS: MB/CK RELATIVE INDEX 0.54 (< OR =4)
[2022-09-03 17:32] LABS: THYROID STIMULATING HORMONE 0.957 uIU/ML (0.55-4.78)
[2022-09-03 17:33] LABS: FREE T4 0.95 NG/DL (0.89-1.76)
[2022-09-03 17:37] LABS: BACTERIA, URINE MOD AMOUNT; BARBITURATES URINE NEGATIVE (NEGATIVE); BENZODIAZEPINES URINE NEGATIVE (NEGATIVE); CALCIUM OXALATE CRYSTALS,URINE MOD AMOUNT /hpf; CANNABINOIDS URINE NEGATIVE (NEGATIVE); COCAINE METABOLITE URINE NEGATIVE (NEGATIVE); HYALINE CAST, URINE 0-1 /lpf (0-1); METHADONE URINE NEGATIVE (NEGATIVE); OPIATES URINE NEGATIVE (NEGATIVE); PHENCYCLIDINE URINE NEGATIVE (NEGATIVE); SQUAMOUS EPITHELIAL CELL URINE MOD AMOUNT /hpf (SMALL AMT); WBC, URINE 15-20 /hpf (0-3)
[2022-09-03 17:54] LABS: PARTIAL THROMBOPLASTIN TIME 31.8 SECONDS (24.8-34.2)
[2022-09-03 18:03] LABS: AMPHETAMINES LEVEL URINE POSITIVE (NEGATIVE)
[2022-09-03] MEDS ORDERED: ISOVUE-370 76% 100ML VIAL As Ordered ONE (19:54)
[2022-09-03 20:13] LABS: AMPHETAMINES LEVEL URINE NEGATIVE (NEGATIVE); BARBITURATES URINE NEGATIVE (NEGATIVE); BENZODIAZEPINES URINE NEGATIVE (NEGATIVE); CANNABINOIDS URINE NEGATIVE (NEGATIVE); COCAINE METABOLITE URINE NEGATIVE (NEGATIVE); METHADONE URINE NEGATIVE (NEGATIVE); OPIATES URINE NEGATIVE (NEGATIVE); PHENCYCLIDINE URINE NEGATIVE (NEGATIVE)
[2022-09-03] MEDS ORDERED: NS 500 ML IV ONE (20:35)
[2022-09-03 20:58] LABS: BASO % 0.3 % (0.0-1.0); EOS # 0.1 10^3/uL (0.0-0.5); EOS % 0.8 % (0.0-3.0); HEMATOCRIT 30.6 % (36.0-47.0); HEMOGLOBIN 10.2 g/dl (12.0-15.5); LYMPH # 2.1 10^3/uL (1.5-5.0); LYMPH % 32.1 % (24.0-44.0); MEAN CORPUSCULAR HEMOGLOBIN 34.6 pg (27.0-33.0); MEAN CORPUSCULAR HGB CONC 33.3 g/dl (32.0-36.5); MEAN CORPUSCULAR VOLUME 103.7 fl (80.0-96.0); MONO # 0.6 10^3/uL (0.0-0.8); MONO % 9.5 % (2.0-8.0); NEUTROPHILS # 3.8 10^3/uL (1.5-8.5); NEUTROPHILS % 57.1 % (36.0-66.0); PLATELET COUNT, AUTOMATED 258 10^3/uL (150-450); RED BLOOD COUNT 2.95 10^6/uL (4.00-5.40); WHITE BLOOD COUNT 6.6 10^3/uL (4.0-10.0)
[2022-09-03 22:00] VITALS: BP 134/74
[2022-09-03] MEDS ORDERED: NITR1CAP11 PO (22:00)
[2022-09-03] MEDS ORDERED: NITROFURANTOIN (MACROBID) 100 MG CAP PO ONE (22:05)
== END 2022-09-03 22:11 | disposition home or self-care (01) ==
LOC: M ED 12:35
DX: N39.0 Urinary tract infection, site not specified (principal); R00.2 Palpitations; R55 Syncope and collapse; I10 Essential (primary) hypertension; F32.9 Major depressive disorder, single episode, unspecified; Z86.73 Personal history of transient ischemic attack (TIA), and cerebral infarction without residual deficits; F17.200 Nicotine dependence, unspecified, uncomplicated; Z82.3 Family history of stroke; Z82.49 Family history of ischemic heart disease and other diseases of the circulatory system; Z79.82 Long term (current) use of aspirin; Z79.899 Other long term (current) drug therapy
CPT/HCPCS: 70450; 71275; 72125; 80047; 80307; 81000; 81015; 82077; 82550; 82553; 83735; 84439; 84443; 84484; 85025; 85610; 85730; 93005; 99285; Q9967

== ENCOUNTER → 2022-11-09 | Outpatient (CLI) | payer MEDICARE, OTHER ==
[~2022-11-09] MED LIST changes: +NITR1CAP11 PO
[2022-11-09 15:43] LABS: ALBUMIN 3.8 G/DL (3.2-5.2); ALKALINE PHOSPHATASE 142 U/L (46-116); ALT/SGPT 21 U/L (7.0-40); AST/SGOT 25 U/L (<34); BILIRUBIN,DIRECT 0.2 MG/DL (<0.4); BILIRUBIN,TOTAL 0.6 MG/DL (0.3-1.2); FOLATE > 24.0 NG/ML (>5.4); FREE T4 1.07 NG/DL (0.89-1.76); THYROID STIMULATING HORMONE 0.858 uIU/ML (0.55-4.78); TOTAL 25(OH) VITAMIN D 49.1 NG/ML (20.0-100.0); VITAMIN B12 LEVEL 1963 PG/ML (211-911)
== END ==
LOC: M LAB 14:49
PROVIDERS: ATTEND Nurse Practitioner Family
DX: F10.10 Alcohol abuse, uncomplicated (principal); R53.83 Other fatigue

== ENCOUNTER → 2022-12-03 | Outpatient (CLI) | payer MEDICARE, OTHER | LOC: M RAD 08:18 | PROVIDERS: ATTEND Nurse Practitioner Family | DX: R74.8 Abnormal levels of other serum enzymes (principal); F10.10 Alcohol abuse, uncomplicated; R16.0 Hepatomegaly, not elsewhere classified; R93.3 Abnormal findings on diagnostic imaging of other parts of digestive tract ==

== ENCOUNTER 2023-04-26 17:08 | Day surgery (SDC) | payer MEDICARE, OTHER ==
[~2023-04-26] VITALS: Ht 167.6 cm; Wt 70.3 kg
[2023-04-26] MEDS ORDERED: BUPR-71 PO (17:25)
[2023-04-26] MEDS ORDERED: LOPI600T PO (17:25)
[2023-04-26] MEDS ORDERED: LOPE1CAP5 (17:25)
[2023-04-26 18:45] LABS: BASO # 0.1 10^3/uL (0.0-0.2); BASO % 0.4 % (0.0-1.0); EOS % 0.1 % (0.0-3.0); HEMATOCRIT 39.1 % (36.0-47.0); HEMOGLOBIN 13.4 g/dl (12.0-15.5); LYMPH # 1.7 10^3/uL (1.5-5.0); LYMPH % 10.5 % (24.0-44.0); MEAN CORPUSCULAR HEMOGLOBIN 35.6 pg (27.0-33.0); MEAN CORPUSCULAR HGB CONC 34.3 g/dl (32.0-36.5); MONO # 0.5 10^3/uL (0.0-0.8); MONO % 3.3 % (2.0-8.0); NEUTROPHILS # 13.6 10^3/uL (1.5-8.5); NEUTROPHILS % 85.4 % (36.0-66.0); PLATELET COUNT, AUTOMATED 364 10^3/uL (150-450); RED BLOOD COUNT 3.76 10^6/uL (4.00-5.40); WHITE BLOOD COUNT 15.9 10^3/uL (4.0-10.0)
[2023-04-26 19:17] LABS: LIPASE 22 U/L (12-53)
[2023-04-26 19:19] LABS: ALBUMIN 3.5 G/DL (3.2-5.2); ALKALINE PHOSPHATASE 141 U/L (46-116); ALT/SGPT 12 U/L (7.0-40); AST/SGOT 16 U/L (<34); BILIRUBIN,DIRECT 0.3 MG/DL (<0.4); BILIRUBIN,TOTAL 0.6 MG/DL (0.3-1.2); BLOOD UREA NITROGEN 12 MG/DL (9-23); CARBON DIOXIDE LEVEL 28 MMOL/L (20-31); CHLORIDE LEVEL 101 MMOL/L (98-107); GLOMERULAR FILTRATION RATE > 60.0 (>45); GLUCOSE, FASTING 118 MG/DL (74-106); POTASSIUM SERUM 3.5 MMOL/L (3.5-5.1); SODIUM LEVEL 139 MMOL/L (136-145); TOTAL PROTEIN 6.6 G/DL (5.7-8.2)
[2023-04-26] MEDS ORDERED: SUCRALFATE 1 GM TAB PO ONE (22:20)
[2023-04-26] MEDS ORDERED: NS 1,000 ML IV ONE ×2 (22:20→23:35)
[2023-04-26] MEDS ORDERED: PANTOPRAZOLE 40MG VIAL IV ONE (22:20)
[2023-04-26] MEDS ORDERED: MAALOX 30 ML SUSP *UDC PO ONE (22:20)
[2023-04-26] MEDS ORDERED: HYOSCYAMINE SULFATE 0.125 MG SUBL TABLET PO ONE (22:20)
[2023-04-26] MEDS ORDERED: PIPERACILLIN/TAZOBACTAM SOD 3.375 GM in D5W MINI-BAG PLUS 50 ML IV ONE (23:35)
[2023-04-26] MEDS ORDERED: ONDANSETRON 4MG 2ML VIAL IV ONE (23:40)
[2023-04-26] MEDS ORDERED: MORPHINE 4 MG/ML 1ML VIAL IV ONE (23:40)
[2023-04-27] VITALS (10 sets, daily range): BP systolic 96–137; BP diastolic 50–71; TEMP 96.6–98.8; O2SAT 89–94
[2023-04-27] MEDS ORDERED: CETI-24 PO (00:33)
[2023-04-27] MEDS ORDERED: [UNRECOGNIZED DRUG - OTHER] PO (00:33)
[2023-04-27] MEDS ORDERED: HOME MED LIST COMPLETE! XX SCH (00:35)
[2023-04-27] MEDS ORDERED: HYDROmorphone 2 MG TAB PO PRN (00:50)
[2023-04-27] MEDS ORDERED: MORPHINE 4 MG/ML 1ML VIAL IV PRN (00:50)
[2023-04-27] MEDS ORDERED: ONDANSETRON 4MG 2ML VIAL IV PRN (00:50)
[2023-04-27] MEDS ORDERED: ACETAMINOPHEN TAB 650MG DOSE (2X325MG) PO PRN (00:50)
[2023-04-27] MEDS: KCL 20MEQ IN D5/0.45NS 1000ML 1,000 ML IV SCH ×3 (02:08→16:50)
[2023-04-27] MEDS: PIPERACILLIN/TAZOBACTAM SOD 3.375 GM in D5W MINI-BAG PLUS 50 ML IV SCH ×4 (05:19→23:28)
[2023-04-27] MEDS: amLODIPine 5 MG TAB PO SCH (09:00)
[2023-04-27] MEDS: KETOROLAC 30 MG/ML 1ML VIAL IV PRN (10:50)
[2023-04-27] MEDS ORDERED: fentaNYL 100 MCG/2 ML INJECTION As Ordered ONE ×2 (11:44→13:26)
[2023-04-27] MEDS ORDERED: LIDOCAINE 2% 100MG/5ML SDV (FOR ANES.) As Ordered ONE (11:44)
[2023-04-27] MEDS ORDERED: ROCURONIUM BROMIDE 50MG/5ML VIAL As Ordered ONE (11:44)
[2023-04-27] MEDS ORDERED: ONDANSETRON 4MG 2ML VIAL As Ordered ONE (11:44)
[2023-04-27] MEDS ORDERED: propofoL 200 MG/20 ML VIAL As Ordered ONE (11:44)
[2023-04-27] MEDS ORDERED: MIDAZOLAM INJ 2MG/2ML VIAL As Ordered ONE (11:44)
[2023-04-27] MEDS ORDERED: LR 1,000 ML IV SCH (11:45)
[2023-04-27] MEDS ORDERED: fentaNYL 100 MCG/2 ML INJECTION IV PRN (11:45)
[2023-04-27] MEDS ORDERED: LIDOCAINE 1% SDV 30ML VIAL As Ordered ONE (12:16)
[2023-04-27] MEDS ORDERED: SUGAMMADEX SODIUM 500 MG/5 ML VIAL (BRIDION) As Ordered ONE (13:07)
[2023-04-27] MEDS ORDERED: KETOROLAC 60MG 2ML VIAL As Ordered ONE (13:09)
[2023-04-27] MEDS ORDERED: ACETAMINOPHEN 1000MG 100ML IV BAG As Ordered ONE (13:10)
[2023-04-27] MEDS ORDERED: SUCCINYLCHOLINE 100MG/5ML SYRINGE As Ordered ONE (13:12)
[2023-04-28] MEDS: PIPERACILLIN/TAZOBACTAM SOD 3.375 GM in D5W MINI-BAG PLUS 50 ML IV SCH ×2 (05:14→12:00)
[2023-04-28] MEDS: KCL 20MEQ IN D5/0.45NS 1000ML 1,000 ML IV SCH ×2 (05:14→08:50)
[2023-04-28 05:35] VITALS: BP 111/63; TEMP 98.1; O2SAT 91
[2023-04-28] MEDS: KETOROLAC 30 MG/ML 1ML VIAL IV PRN ×2 (09:28→09:33)
[2023-04-28 10:00] VITALS: BP 111/55; TEMP 98.2; O2SAT 96
[2023-04-28] MEDS ORDERED: METR-265 PO (11:34)
[2023-04-28] MEDS ORDERED: LEVO750T14 PO (11:34)
[2023-04-28 11:50] VITALS: BP 112/56
[2023-04-28] MEDS: amLODIPine 5 MG TAB PO SCH (11:50)
== END 2023-04-28 12:26 | disposition home or self-care (01) ==
LOC: EDBD 17:08 → M ED 17:08 → M SDC 17:09 → ENRESERV 04-27 03:15 → M MSPAV 04-27 04:45 → M SDC 04-28 12:26
PROVIDERS: ATTEND Surgery
DX: K35.32 Acute appendicitis with perforation, localized peritonitis, and gangrene, without abscess (principal); I10 Essential (primary) hypertension; F17.210 Nicotine dependence, cigarettes, uncomplicated; Z86.73 Personal history of transient ischemic attack (TIA), and cerebral infarction without residual deficits; F32.A Depression, unspecified; Z79.899 Other long term (current) drug therapy
CPT/HCPCS: 36415; 44970; 74177; 80048; 80076; 81001; 83605; 83690; 85025; 87635; 88304; 96365; 96366; 96374; 96375; 96376; 99284; C9113; J0131; J0330; J0665; J1100; J1885; J2250; J2405; J2543; J3010

== ENCOUNTER → 2023-09-18 | Outpatient (CLI) | payer MEDICARE, OTHER ==
[~2023-09-18] MED LIST changes: +BUPR-71 PO; +CETI-24 PO; +LEVO750T14 PO; +LOPE1CAP5; +LOPI600T PO; +MECL-209 PO; -MECL1TAB31 PO; +METR-265 PO; +[UNRECOGNIZED DRUG - OTHER] PO
== END ==
LOC: M RAD 09:17
PROVIDERS: ATTEND Registered Nurse
DX: Z12.2 Encounter for screening for malignant neoplasm of respiratory organs (principal); F17.210 Nicotine dependence, cigarettes, uncomplicated; J47.9 Bronchiectasis, uncomplicated

== ENCOUNTER → 2024-01-06 | Outpatient (CLI) | payer MEDICARE, OTHER ==
[2024-01-06 16:43] LABS: ALBUMIN 4.1 G/DL (3.2-5.2); BILIRUBIN,DIRECT 0.2 MG/DL (<0.4); BILIRUBIN,TOTAL 0.5 MG/DL (0.3-1.2); TOTAL PROTEIN 7.2 G/DL (5.7-8.2)
[2024-01-06 17:41] LABS: % LABILE ALKALINE PHOSPHATASE 47.4 %
== END ==
LOC: M LAB 15:52
PROVIDERS: ATTEND Internal Medicine Gastroenterology
DX: R74.8 Abnormal levels of other serum enzymes (principal); Z86.010 Personal history of colon polyps; K52.839 Microscopic colitis, unspecified; K37 Unspecified appendicitis

== ENCOUNTER → 2024-02-19 | Outpatient (CLI) | payer MEDICARE, OTHER ==
[~2024-02-19] MED LIST changes: +NITR100C3 PO; -NITR1CAP11 PO; +ONDA-282 PO; -ONDA4TAB6 PO
== END ==
LOC: M WHC 12:03
PROVIDERS: ATTEND Registered Nurse
DX: Z12.31 Encounter for screening mammogram for malignant neoplasm of breast (principal); M81.0 Age-related osteoporosis without current pathological fracture; M85.851 Other specified disorders of bone density and structure, right thigh; R92.333 Mammographic heterogeneous density, bilateral breasts

== ENCOUNTER → 2024-02-21 | Outpatient (CLI) | payer MEDICARE, OTHER ==
[2024-02-21 15:46] LABS: BASO # 0.1 10^3/uL (0.0-0.2); BASO % 0.9 % (0.0-1.0); EOS # 0.1 10^3/uL (0.0-0.5); EOS % 0.9 % (0.0-3.0); HEMATOCRIT 35.6 % (36.0-47.0); HEMOGLOBIN 12.4 g/dl (12.0-15.5); LYMPH # 2.5 10^3/uL (1.5-5.0); LYMPH % 27.8 % (24.0-44.0); MEAN CORPUSCULAR HEMOGLOBIN 39.1 pg (27.0-33.0); MEAN CORPUSCULAR HGB CONC 34.8 g/dl (32.0-36.5); MEAN CORPUSCULAR VOLUME 112.3 fl (80.0-96.0); MONO # 0.6 10^3/uL (0.0-0.8); MONO % 6.9 % (2.0-8.0); NEUTROPHILS # 5.7 10^3/uL (1.5-8.5); NEUTROPHILS % 63.3 % (36.0-66.0); PLATELET COUNT, AUTOMATED 297 10^3/uL (150-450); RED BLOOD COUNT 3.17 10^6/uL (4.00-5.40)
[2024-02-21 16:16] LABS: CHOLESTEROL RISK RATIO 1.81 (<5); HDL CHOLESTEROL 83.2 MG/DL (>40); LDL CHOLESTEROL 55.2 MG/DL (<100); NON-HDL-C 67.8 MG/DL
== END ==
LOC: M LAB 15:02
PROVIDERS: ATTEND Registered Nurse
DX: E78.2 Mixed hyperlipidemia (principal)

== ENCOUNTER → 2024-02-21 | Outpatient (CLI) | payer MEDICARE, OTHER | LOC: M LAB 14:56 | PROVIDERS: ATTEND Physician Assistant | DX: R74.8 Abnormal levels of other serum enzymes (principal); K52.839 Microscopic colitis, unspecified; Z80.0 Family history of malignant neoplasm of digestive organs; Z53.9 Procedure and treatment not carried out, unspecified reason ==

== ENCOUNTER 2024-05-06 13:48 | Inpatient (IN) | payer MEDICARE, OTHER ==
[~2024-05-06] VITALS: Ht 170.2 cm; Wt 62.5 kg
[2024-05-06 14:52] LABS: BASO % 0.5 % (0.0-1.0); EOS % 0.2 % (0.0-3.0); HEMATOCRIT 43.3 % (36.0-47.0); HEMOGLOBIN 15.5 g/dl (12.0-15.5); LYMPH # 1.2 10^3/uL (1.5-5.0); LYMPH % 20.6 % (24.0-44.0); MEAN CORPUSCULAR HEMOGLOBIN 37.3 pg (27.0-33.0); MEAN CORPUSCULAR HGB CONC 35.8 g/dl (32.0-36.5); MEAN CORPUSCULAR VOLUME 104.1 fl (80.0-96.0); MONO # 0.4 10^3/uL (0.0-0.8); MONO % 6.8 % (2.0-8.0); NEUTROPHILS # 4.2 10^3/uL (1.5-8.5); NEUTROPHILS % 71.4 % (36.0-66.0); PLATELET COUNT, AUTOMATED 208 10^3/uL (150-450); RED BLOOD COUNT 4.16 10^6/uL (4.00-5.40); WHITE BLOOD COUNT 5.9 10^3/uL (4.0-10.0)
[2024-05-06] MEDS ORDERED: CYAN-1 PO (14:53)
[2024-05-06] MEDS ORDERED: [UNRECOGNIZED DRUG - CODE] PO (14:54)
[2024-05-06 15:19] LABS: ALBUMIN 3.9 G/DL (3.2-5.2); BILIRUBIN,DIRECT 0.3 MG/DL (<0.4); BILIRUBIN,TOTAL 0.6 MG/DL (0.3-1.2); CREATININE FOR GFR 3.72 MG/DL (0.55-1.30); GLOMERULAR FILTRATION RATE 12.9 (>45); POTASSIUM SERUM 3.1 MMOL/L (3.5-5.1); TOTAL PROTEIN 7.6 G/DL (5.7-8.2)
[2024-05-06 15:23] LABS: THYROID STIMULATING HORMONE 0.695 uIU/ML (0.55-4.78); THYROXINE (T4) 7.8 UG/DL (4.5-10.9)
[2024-05-06] MEDS: NS 1,000 ML IV SCH (15:50)
[2024-05-06] MEDS: POTASSIUM CHLORIDE 10MEQ SR TABLET PO ONE (15:50)
[2024-05-06 17:15] LABS: MAGNESIUM LEVEL 1.3 MG/DL (1.8-2.4)
[2024-05-06] MEDS ORDERED: BUPR-597 PO (17:33)
[2024-05-06] MEDS ORDERED: LORazepam 2 MG TAB PO PRN (17:35)
[2024-05-06] MEDS ORDERED: FURO20TA2 PO (17:35)
[2024-05-06] MEDS ORDERED: ALEN70TA82 PO (17:35)
[2024-05-06] MEDS ORDERED: COLE625T PO (17:35)
[2024-05-06] MEDS ORDERED: ONDANSETRON 4MG 2ML VIAL IV PRN (17:35)
[2024-05-06] MEDS ORDERED: ASPI-226 PO (17:35)
[2024-05-06] MEDS ORDERED: HOME MED LIST COMPLETE! XX SCH (17:40)
[2024-05-06] MEDS: THIAMINE 100 MG TAB PO SCH (18:31)
[2024-05-06] MEDS: MAG SULF 1GM/100ML (MAG RUN) 1 GM in IV 1 EA IV SCH (18:35)
[2024-05-06 19:19] VITALS: BP 131/75
[2024-05-06 20:00] VITALS: BP 131/74; TEMP 98.1; O2SAT 100
[2024-05-07 04:00] VITALS: BP 130/71; TEMP 97.9; O2SAT 96
[2024-05-07] MEDS: HEPARIN SOD (PORCINE) 5000UNITS/ML 1ML VIAL/SYRINGE SC SCH (05:37)
[2024-05-07 06:01] LABS: HEMATOCRIT 32.3 % (36.0-47.0); MEAN CORPUSCULAR HEMOGLOBIN 37.4 pg (27.0-33.0); MEAN CORPUSCULAR HGB CONC 35.3 g/dl (32.0-36.5); MEAN CORPUSCULAR VOLUME 105.9 fl (80.0-96.0); PLATELET COUNT, AUTOMATED 166 10^3/uL (150-450); RED BLOOD COUNT 3.05 10^6/uL (4.00-5.40); WHITE BLOOD COUNT 4.2 10^3/uL (4.0-10.0)
[2024-05-07 06:07] LABS: HEMOGLOBIN 11.4 g/dl (12.0-15.5)
[2024-05-07 06:27] LABS: BLOOD UREA NITROGEN 36 MG/DL (9-23); CALCIUM LEVEL 6.2 MG/DL (8.3-10.6); CARBON DIOXIDE LEVEL 18 MMOL/L (20-31); CHLORIDE LEVEL 104 MMOL/L (98-107); GLOMERULAR FILTRATION RATE 18.7 (>45); GLUCOSE, FASTING 84 MG/DL (74-106); SODIUM LEVEL 132 MMOL/L (136-145)
[2024-05-07] MEDS: LR 1,000 ML IV ONE (07:29)
[2024-05-07] MEDS: POTASSIUM CHLORIDE 10MEQ SR TABLET PO ONE ×2 (08:17→15:25)
[2024-05-07] MEDS: FOLIC ACID 1MG TAB PO SCH (08:20)
[2024-05-07] MEDS: ASPIRIN 81MG ENTERIC TABLET PO SCH (08:20)
[2024-05-07] MEDS: CETIRIZINE (ZyrTEC) 10 MG TAB PO SCH (08:20)
[2024-05-07] MEDS: MULTIVITAMINS/MINERALS THERAP 1 TAB PO SCH (08:20)
[2024-05-07] MEDS: amLODIPine 5 MG TAB PO SCH (08:23)
[2024-05-07] MEDS: buPROPion **XL** TABLET 150MG (WELLBUTRIN XL) PO SCH (08:26)
[2024-05-07] MEDS: LR 1,000 ML IV SCH (08:30)
[2024-05-07] MEDS: MAG SULF 1GM/100ML (MAG RUN) 1 GM in IV 1 EA IV SCH (09:46)
[2024-05-07] MEDS ORDERED: ALBUTEROL 90 MCG/ACT 8GM HFA INHALER INH PRN (10:50)
[2024-05-07 11:26] LABS: HEPATITIS B SURFACE ANTIGEN NEGATIVE (NEGATIVE)
[2024-05-07] MEDS: COLESEVELAM 625 MG TAB (WELCHOL) PO SCH (11:41)
[2024-05-07 11:47] LABS: HEPATITIS C VIRUS ABY INDEX 0.03 INDEX (<0.8)
[2024-05-07 11:48] LABS: HEPATITIS B CORE ANTIBODY IGM NEGATIVE (NEGATIVE)
[2024-05-07] MEDS: BENZONATATE 100MG CAPSULE PO SCH (14:46)
[2024-05-07 15:27] VITALS: BP 115/59
[2024-05-07 15:33] VITALS: BP 115/59; TEMP 97.7; O2SAT 96
[2024-05-07 20:00] VITALS: BP 116/59; TEMP 97.7; O2SAT 97
[2024-05-08 04:00] VITALS: BP 122/60; TEMP 97.7; O2SAT 98
[2024-05-08 05:42] LABS: BASO % 0.6 % (0.0-1.0); EOS # 0.1 10^3/uL (0.0-0.5); EOS % 2.3 % (0.0-3.0); HEMATOCRIT 29.2 % (36.0-47.0); HEMOGLOBIN 10.2 g/dl (12.0-15.5); LYMPH # 1.7 10^3/uL (1.5-5.0); LYMPH % 50.3 % (24.0-44.0); MEAN CORPUSCULAR HEMOGLOBIN 37.4 pg (27.0-33.0); MEAN CORPUSCULAR HGB CONC 34.9 g/dl (32.0-36.5); MONO # 0.4 10^3/uL (0.0-0.8); NEUTROPHILS # 1.2 10^3/uL (1.5-8.5); NEUTROPHILS % 35.5 % (36.0-66.0); PLATELET COUNT, AUTOMATED 159 10^3/uL (150-450); RED BLOOD COUNT 2.73 10^6/uL (4.00-5.40); WHITE BLOOD COUNT 3.4 10^3/uL (4.0-10.0)
[2024-05-08 06:08] LABS: CREATININE FOR GFR 1.33 MG/DL (0.55-1.30); GLOMERULAR FILTRATION RATE 42.4 (>45); MAGNESIUM LEVEL 1.8 MG/DL (1.8-2.4); POTASSIUM SERUM 3.9 MMOL/L (3.5-5.1)
[2024-05-08 08:00] VITALS: BP 123/60
[2024-05-08 08:22] LABS: PTH INTACT 298.5 PG/ML (18.5-88.0)
[2024-05-08 08:47] VITALS: BP 123/60
[2024-05-08] MEDS: CALCIUM CARBONATE 500 MG CHEW U/D PO SCH (08:48)
[2024-05-08 12:00] VITALS: BP 122/59; TEMP 97.2; O2SAT 99
== END 2024-05-08 13:33 | disposition home or self-care (01) | DRG 682 ==
LOC: M ED 13:48 → EDBD 13:48 → M ED INP 16:55 → M MSPAV 18:17
PROVIDERS: ADMIT Internal Medicine; ATTEND Internal Medicine
DX: N17.9 Acute kidney failure, unspecified (principal); U07.1 COVID-19; F10.288 Alcohol dependence with other alcohol-induced disorder; E46 Unspecified protein-calorie malnutrition; K52.839 Microscopic colitis, unspecified; I10 Essential (primary) hypertension; R26.89 Other abnormalities of gait and mobility; F39 Unspecified mood [affective] disorder; F17.210 Nicotine dependence, cigarettes, uncomplicated; E87.6 Hypokalemia; K70.9 Alcoholic liver disease, unspecified; E83.42 Hypomagnesemia; D75.89 Other specified diseases of blood and blood-forming organs; E83.51 Hypocalcemia; R74.01 Elevation of levels of liver transaminase levels; Z79.82 Long term (current) use of aspirin; Z79.899 Other long term (current) drug therapy; Z91.011 Allergy to milk products; Z71.41 Alcohol abuse counseling and surveillance of alcoholic

== ENCOUNTER → 2024-05-13 | Outpatient (CLI) | payer MEDICARE, OTHER ==
[~2024-05-13] MED LIST changes: +ALEN70TA82 PO; +ASPI-226 PO; +BUPR-597 PO; +COLE625T PO; +CYAN-1 PO; +FURO20TA2 PO; +[UNRECOGNIZED DRUG - CODE] PO
[2024-05-13 13:15] LABS: BLOOD UREA NITROGEN 6 MG/DL (9-23); CALCIUM LEVEL 8.7 MG/DL (8.3-10.6); CARBON DIOXIDE LEVEL 28 MMOL/L (20-31); CHLORIDE LEVEL 109 MMOL/L (98-107); CREATININE FOR GFR 0.92 MG/DL (0.55-1.30); GLOMERULAR FILTRATION RATE > 60.0 (>45); GLUCOSE, FASTING 75 MG/DL (74-106); MAGNESIUM LEVEL 1.2 MG/DL (1.8-2.4); POTASSIUM SERUM 3.9 MMOL/L (3.5-5.1); SODIUM LEVEL 140 MMOL/L (136-145)
== END ==
LOC: M LAB 12:09
PROVIDERS: ATTEND Internal Medicine
DX: N17.9 Acute kidney failure, unspecified (principal)

== ENCOUNTER 2024-06-08 10:28 | Outpatient (RCR) | payer MEDICARE, OTHER | END 2024-06-15 | LOC: M PT 10:28 | PROVIDERS: ATTEND Internal Medicine | DX: R26.89 Other abnormalities of gait and mobility (principal); H81.4 Vertigo of central origin ==

== ENCOUNTER → 2024-06-17 | Outpatient (CLI) | payer MEDICARE, OTHER ==
[2024-06-17 12:52] LABS: BASO # 0.1 10^3/uL (0.0-0.2); BASO % 1.3 % (0.0-1.0); EOS # 0.3 10^3/uL (0.0-0.5); EOS % 5.3 % (0.0-3.0); HEMATOCRIT 33.2 % (36.0-47.0); HEMOGLOBIN 11.2 g/dl (12.0-15.5); LYMPH % 41.8 % (24.0-44.0); MEAN CORPUSCULAR HEMOGLOBIN 36.2 pg (27.0-33.0); MEAN CORPUSCULAR HGB CONC 33.7 g/dl (32.0-36.5); MEAN CORPUSCULAR VOLUME 107.4 fl (80.0-96.0); MONO # 0.3 10^3/uL (0.0-0.8); MONO % 7.1 % (2.0-8.0); NEUTROPHILS # 2.1 10^3/uL (1.5-8.5); NEUTROPHILS % 44.3 % (36.0-66.0); PLATELET COUNT, AUTOMATED 297 10^3/uL (150-450); RED BLOOD COUNT 3.09 10^6/uL (4.00-5.40); WHITE BLOOD COUNT 4.8 10^3/uL (4.0-10.0)
[2024-06-17 13:27] LABS: ALBUMIN 3.7 G/DL (3.2-5.2); ALKALINE PHOSPHATASE 128 U/L (46-116); ALT/SGPT 10 U/L (7.0-40); AST/SGOT 12 U/L (<34); BILIRUBIN,TOTAL 0.4 MG/DL (0.3-1.2); BLOOD UREA NITROGEN 8 MG/DL (9-23); CALCIUM LEVEL 9.1 MG/DL (8.3-10.6); CARBON DIOXIDE LEVEL 26 MMOL/L (20-31); CHLORIDE LEVEL 108 MMOL/L (98-107); CREATININE FOR GFR 0.98 MG/DL (0.55-1.30); GLOMERULAR FILTRATION RATE > 60.0 (>45); GLUCOSE, FASTING 78 MG/DL (74-106); MAGNESIUM LEVEL 1.8 MG/DL (1.8-2.4); POTASSIUM SERUM 4.4 MMOL/L (3.5-5.1); SODIUM LEVEL 138 MMOL/L (136-145); TOTAL PROTEIN 6.6 G/DL (5.7-8.2)
== END ==
LOC: M LAB 11:34
PROVIDERS: ATTEND Registered Nurse
DX: R60.0 Localized edema (principal)

== ENCOUNTER → 2024-06-17 | Outpatient (CLI) | payer MEDICARE, OTHER ==
[2024-06-19 15:47] LABS: ANTI-MITOCHONDRIAL ANTIBODY NEGATIVE (NEGATIVE)
[2024-06-24 16:02] LABS: ALPHA 2-MACROGLOBULINS,QN 149 mg/dL (106-279); ALT (SGPT) P5P 5 U/L (6-29); APOLIPOPROTEIN A-1 161 mg/dL (101-198); BILIRUBIN, TOTAL 0.4 mg/dL (0.2-1.2); FIBROSIS SCORE 0.11; FIBROSIS STAGE NO FIBROSIS (F0); GGT 7 U/L (3-65); HAPTOGLOBIN 54 mg/dL (43-212); NECROINFLAM ACT GRADE NO ACTIVITY (A0); NECROINFLAM ACT SCORE 0.01
== END ==
LOC: M LAB 11:33
PROVIDERS: ATTEND Internal Medicine Gastroenterology
DX: R74.8 Abnormal levels of other serum enzymes (principal); Z86.0100 Personal history of colon polyps, unspecified; K52.839 Microscopic colitis, unspecified; R60.0 Localized edema

== ENCOUNTER 2024-07-15 10:28 | Outpatient (RCR) | payer MEDICARE, OTHER | END 2024-07-16 | LOC: M PT 10:28 | PROVIDERS: ATTEND Internal Medicine | DX: R26.89 Other abnormalities of gait and mobility (principal); H81.4 Vertigo of central origin ==

== ENCOUNTER 2024-07-22 10:28 | Outpatient (RCR) | payer MEDICARE, OTHER | END 2024-08-15 | LOC: M PT 10:28 | PROVIDERS: ATTEND Internal Medicine | DX: Z01.818 Encounter for other preprocedural examination (principal); R26.89 Other abnormalities of gait and mobility; H81.4 Vertigo of central origin; I10 Essential (primary) hypertension ==

== ENCOUNTER → 2024-07-22 | Outpatient (CLI) | payer MEDICARE, OTHER ==
[~2024-07-22] MED LIST changes: -LEVO750T14 PO; +LEVO75TAB PO
[2024-07-22 12:38] LABS: BASO # 0.1 10^3/uL (0.0-0.2); BASO % 1.2 % (0.0-1.0); EOS # 0.1 10^3/uL (0.0-0.5); EOS % 1.8 % (0.0-3.0); HEMATOCRIT 32.9 % (36.0-47.0); HEMOGLOBIN 10.6 g/dl (12.0-15.5); LYMPH # 2.4 10^3/uL (1.5-5.0); LYMPH % 48.5 % (24.0-44.0); MEAN CORPUSCULAR HEMOGLOBIN 33.7 pg (27.0-33.0); MEAN CORPUSCULAR HGB CONC 32.2 g/dl (32.0-36.5); MEAN CORPUSCULAR VOLUME 104.4 fl (80.0-96.0); MONO # 0.3 10^3/uL (0.0-0.8); MONO % 6.5 % (2.0-8.0); NEUTROPHILS # 2.1 10^3/uL (1.5-8.5); NEUTROPHILS % 41.8 % (36.0-66.0); PLATELET COUNT, AUTOMATED 323 10^3/uL (150-450); RED BLOOD COUNT 3.15 10^6/uL (4.00-5.40); WHITE BLOOD COUNT 4.9 10^3/uL (4.0-10.0)
[2024-07-22 12:55] LABS: ALBUMIN 3.7 G/DL (3.2-5.2); ALKALINE PHOSPHATASE 131 U/L (35-104); ALT/SGPT < 9 U/L (7.0-40); AST/SGOT 8 U/L (<34); BILIRUBIN,TOTAL 0.2 MG/DL (0.3-1.2); BLOOD UREA NITROGEN 9 MG/DL (9-23); CALCIUM LEVEL 9.4 MG/DL (8.3-10.6); CARBON DIOXIDE LEVEL 24 MMOL/L (20-31); CHLORIDE LEVEL 109 MMOL/L (98-107); CREATININE FOR GFR 1.04 MG/DL (0.55-1.30); GLOMERULAR FILTRATION RATE 56.3 (>45); GLUCOSE, FASTING 89 MG/DL (74-106); POTASSIUM SERUM 4.5 MMOL/L (3.5-5.1); SODIUM LEVEL 140 MMOL/L (136-145); TOTAL PROTEIN 6.9 G/DL (5.7-8.2)
== END ==
LOC: M LAB 11:48
PROVIDERS: ATTEND Registered Nurse
DX: I10 Essential (primary) hypertension (principal); Z01.818 Encounter for other preprocedural examination

== ENCOUNTER → 2024-10-24 | Outpatient (CLI) | payer MEDICARE ==
[2024-10-24 12:05] LABS: BASO # 0.1 10^3/uL (0.0-0.2); BASO % 0.7 % (0.0-1.0); EOS # 0.1 10^3/uL (0.0-0.5); EOS % 1.2 % (0.0-3.0); HEMATOCRIT 34.4 % (36.0-47.0); HEMOGLOBIN 11.1 g/dl (12.0-15.5); LYMPH # 2.3 10^3/uL (1.5-5.0); LYMPH % 34.4 % (24.0-44.0); MEAN CORPUSCULAR HEMOGLOBIN 32.6 pg (27.0-33.0); MEAN CORPUSCULAR HGB CONC 32.3 g/dl (32.0-36.5); MEAN CORPUSCULAR VOLUME 101.2 fl (80.0-96.0); MONO # 0.4 10^3/uL (0.0-0.8); MONO % 6.5 % (2.0-8.0); NEUTROPHILS # 3.9 10^3/uL (1.5-8.5); NEUTROPHILS % 57.1 % (36.0-66.0); PLATELET COUNT, AUTOMATED 287 10^3/uL (150-450); WHITE BLOOD COUNT 6.8 10^3/uL (4.0-10.0)
[2024-10-24 12:21] LABS: HEMOGLOBIN A1c 4.8 % (4.0-6.0)
[2024-10-24 12:26] LABS: IRON (FE) 105 UG/DL (50-170); PERCENT SATURATION 36.5 % (13.2-45.0); TOTAL IRON BINDING CAPACITY 288 UG/DL (250-425)
[2024-10-24 12:27] LABS: ALBUMIN 3.7 G/DL (3.2-5.2); ALKALINE PHOSPHATASE 130 U/L (35-104); ALT/SGPT < 9 U/L (7.0-40); AST/SGOT 12 U/L (<34); BILIRUBIN,TOTAL 0.4 MG/DL (0.3-1.2); BLOOD UREA NITROGEN 10 MG/DL (9-23); CARBON DIOXIDE LEVEL 26 MMOL/L (20-31); CHLORIDE LEVEL 109 MMOL/L (98-107); CHOLESTEROL LEVEL 183 MG/DL (<200); CHOLESTEROL RISK RATIO 2.98 (<5); CREATININE FOR GFR 0.91 MG/DL (0.55-1.30); FOLATE > 24.0 NG/ML (>5.4); GLOMERULAR FILTRATION RATE > 60.0 (>45); GLUCOSE, FASTING 83 MG/DL (74-106); HDL CHOLESTEROL 61.4 MG/DL (>40); LDL CHOLESTEROL 110.6 MG/DL (<100); NON-HDL-C 121.6 MG/DL; POTASSIUM SERUM 4.3 MMOL/L (3.5-5.1); SODIUM LEVEL 141 MMOL/L (136-145); TOTAL PROTEIN 6.8 G/DL (5.7-8.2); TRIGLYCERIDES LEVEL 55 MG/DL (<150)
[2024-10-24 12:29] LABS: VITAMIN B12 LEVEL 922 PG/ML (211-911)
== END ==
LOC: M LAB 10:06
PROVIDERS: ATTEND Registered Nurse
DX: D64.9 Anemia, unspecified (principal); E78.2 Mixed hyperlipidemia; I10 Essential (primary) hypertension; Z79.899 Other long term (current) drug therapy

== ENCOUNTER → 2024-11-04 | Outpatient (CLI) | payer MEDICARE, OTHER | LOC: M RAD 09:16 | PROVIDERS: ATTEND Registered Nurse | DX: Z12.2 Encounter for screening for malignant neoplasm of respiratory organs (principal); F17.210 Nicotine dependence, cigarettes, uncomplicated; J47.9 Bronchiectasis, uncomplicated; J43.2 Centrilobular emphysema; I70.0 Atherosclerosis of aorta; J98.11 Atelectasis ==

== ENCOUNTER → 2025-05-26 | Outpatient (CLI) | payer MEDICARE, OTHER ==
[~2025-05-26] MED LIST changes: -BUPR-597 PO; +BUPR-766 PO
[2025-05-26 10:58] LABS: ALT/SGPT < 9 U/L (7.0-40); AST/SGOT 13 U/L (<34)
== END ==
LOC: M LAB 09:52
PROVIDERS: ATTEND Internal Medicine Gastroenterology
DX: R74.8 Abnormal levels of other serum enzymes (principal); K52.839 Microscopic colitis, unspecified; Z86.0100 Personal history of colon polyps, unspecified

== ENCOUNTER → 2025-07-29 | Outpatient (CLI) | payer MEDICARE, OTHER ==
[2025-07-29 11:35] LABS: BASO # 0.1 10^3/uL (0.0-0.2); BASO % 0.8 % (0.0-1.0); EOS # 0.2 10^3/uL (0.0-0.5); EOS % 2.1 % (0.0-3.0); LYMPH # 3.5 10^3/uL (1.5-5.0); LYMPH % 41.3 % (24.0-44.0); MONO # 0.4 10^3/uL (0.0-0.8); MONO % 4.1 % (2.0-8.0); NEUTROPHILS # 4.4 10^3/uL (1.5-8.5); NEUTROPHILS % 51.5 % (36.0-66.0); PLATELET COUNT, AUTOMATED 369 10^3/uL (150-450)
[2025-07-29 12:01] LABS: ALT/SGPT 11.0 U/L (7.0-40); AST/SGOT 16.0 U/L (<34); CALCIUM LEVEL 8.7 MG/DL (8.3-10.6); CARBON DIOXIDE LEVEL 26.0 MMOL/L (20-31); CHLORIDE LEVEL 105.0 MMOL/L (98-107); CHOLESTEROL LEVEL 179.0 MG/DL (<200); CHOLESTEROL RISK RATIO 3.66 (<5); CREATININE FOR GFR 0.86 MG/DL (0.55-1.30); GLOMERULAR FILTRATION RATE 73.5 (>45); IRON (FE) 69.0 UG/DL (50-170); LDL CHOLESTEROL 106.6 MG/DL (<100); NON-HDL-C 130.2 MG/DL; PERCENT SATURATION 24.8 % (13.2-45.0); POTASSIUM SERUM 4.0 MMOL/L (3.5-5.1); SODIUM LEVEL 139.0 MMOL/L (136-145); TRIGLYCERIDES LEVEL 118.0 MG/DL (<150)
[2025-07-29 12:21] LABS: ESTIMATED AVERAGE GLUCOSE 97.0 MG/DL (60-110)
== END ==
LOC: M LAB 10:37
PROVIDERS: ATTEND Registered Nurse
DX: E78.2 Mixed hyperlipidemia (principal); D64.9 Anemia, unspecified; Z79.899 Other long term (current) drug therapy